=== PATIENT | female | born 1940 | race Hispanic/Latino ===

== ENCOUNTER 2018-11-07 07:35 | Day surgery (SDC) | payer OTHER ==
[2018-11-01 10:44] LABS: BASOPHILS % (AUTO) 0.8 % (0.0-5.0); EOSINOPHILS % (AUTO) 4.5 % (0.0-8.0); HEMATOCRIT 38.7 % (36-48); LYMPHOCYTES % (AUTO) 26.1 % (21.0-51.0); MEAN CORPUSCULAR HEMOGLOBIN 31.7 pg (27.0-33.0); MEAN CORPUSCULAR HGB CONC 34.2 g/dL (32.0-36.0); MEAN CORPUSCULAR VOLUME 92.8 fL (79-99); MONOCYTES % (AUTO) 7.9 % (3.0-13.0); NEUTROPHILS % (AUTO) 60.7 % (40.0-77.0); PLATELET COUNT (AUTO) 278 K/uL (130-400); RED BLOOD CELL COUNT(AUTO) 4.17 MIL/uL (4.00-5.50); RED CELL DISTRIBUTION WIDTH 13.9 % (11.0-15.5); WHITE BLOOD COUNT (AUTO) 7.1 K/uL (4.8-10.8)
[2018-11-01 11:03] LABS: POTASSIUM 4.4 mmol/L (3.5-5.1)
[2018-11-01 11:32] VITALS: BP 160/74
--- NOTE | 2018-11-06 14:30 | NUR ---
REPORTED EKG RESULTS TO DOCTOR HENDRIX, NO NEW ORDERS.
[~2018-11-07] VITALS: Ht 167.6 cm; Wt 91.4 kg
[2018-11-07] VITALS (19 sets, daily range): BP systolic 120–144; BP diastolic 53–77
[~2018-11-07 07:35] MED LIST: ALEN70TA10 PO; ASPI-555 PO; CEFAZOLIN SODIUM 1 GM VIAL IVP SCH; DORZ10DR20 OP; GLIP10TA9 PO; IBUP-2070 PO; LACTATED RINGERS 1000ML 1,000 ML IV SCH; LATA7.5D OP; LEVO50TA11 PO; LISI2.5T2 PO; METF-444 PO; SIMV40TA59 PO
--- NOTE | 2018-11-07 08:00 | NUR ---
POTENTIAL FOR INFECTION: NO SHAVING NEEDED TO RIGHT SHOULDER, WIPED RIGHT SHOULDER WITH PAULO: 2% CHLORHEXIDINE GLUCONATE CLOTH PATIENTS PRE-OP SKIN PREP PER LULA PALACIOS.
[2018-11-07] MEDS ORDERED: SODIUM CHLORIDE 0.9% 1000ML 1,000 ML IV ONE (08:39)
[2018-11-07] MEDS: CEFAZOLIN SODIUM 1 GM VIAL ONE ×2 (09:03→09:50)
[2018-11-07] MEDS ORDERED: ROPIVACAINE 0.5% 5MG/ML 30ML IJ ONE ×2 (09:32→09:36)
[2018-11-07] MEDS ORDERED: PROPOFOL 10 MG/ML 20ML VIAL IV ONE (09:32)
[2018-11-07] MEDS ORDERED: FENTANYL CITRATE PF 50 MCG/1 ML 2ML VIAL ONE (09:32)
[2018-11-07] MEDS ORDERED: ROCURONIUM 10MG/1ML SYR 10 MG/ML ML ONE (09:32)
[2018-11-07] MEDS ORDERED: LIDOCAINE PF 2% 5ML ABBOJECT ONE (09:32)
[2018-11-07] MEDS ORDERED: SUCCINYLCHOLINE 200MG/10ML SYR ONE (09:32)
[2018-11-07] MEDS ORDERED: GLYCOPYRROLATE 1 MG/5 ML SYRINGE ONE (10:57)
[2018-11-07] MEDS ORDERED: KETOROLAC TROMETHAMINE 30MG/ML ONE (10:57)
[2018-11-07] MEDS ORDERED: ONDANSETRON HCL 4 MG/2 ML VIAL ONE (10:57)
[2018-11-07] MEDS ORDERED: NEOSTIGMINE 5MG/5ML SYR IV ONE (10:57)
[2018-11-07] MEDS ORDERED: MORPHINE SULFATE 2 MG/ML 1ML SYG ONE (12:04)
--- NOTE | 2018-11-07 12:50 | NUR ---
new received new pt from [facility], s/p right shoulder arthroscopy. dressing to site dry and intact with arm sling in place. vs stable on arrival. pt awake and alert. plan of care discuss with patient/daughter
--- NOTE | 2018-11-07 13:20 | NUR ---
dc dc instructions given to pt daughter with rx, office close with .dr wolf unable to make f/u appointment, but daughter instructed to f/u in 1 week, instructed on new med regimen. to keep dressing dry and intact at all times. to wear arm sling to right shoulder. dressing to right shoulder dry and intact, pt able to wiggle fingers. pt received a nerve block.
--- NOTE | 2018-11-07 13:25 | NUR ---
dc pt dc home via w[facility] , no distress noted. denied any pain or discomforts. right shoulder dressing dry and intact with arm sling in place. patient accompanied by daughter.
== END 2018-11-07 13:25 | disposition home or self-care (01) ==
LOC: DAH 07:35
PROVIDERS: ATTEND Orthopaedic Surgery
DX: M75.111 Incomplete rotator cuff tear or rupture of right shoulder, not specified as traumatic (principal); M25.711 Osteophyte, right shoulder; E11.9 Type 2 diabetes mellitus without complications; I10 Essential (primary) hypertension; K21.9 Gastro-esophageal reflux disease without esophagitis; E78.00 Pure hypercholesterolemia, unspecified; Z98.51 Tubal ligation status; Z90.710 Acquired absence of both cervix and uterus; Z98.890 Other specified postprocedural states; Z79.899 Other long term (current) drug therapy; Z79.84 Long term (current) use of oral hypoglycemic drugs; Z83.3 Family history of diabetes mellitus; Z82.49 Family history of ischemic heart disease and other diseases of the circulatory system
CPT/HCPCS: 29826; 29827; 36415; 80048; 82948 ×2; 85025; 93005; A4215; A4248; A4452; A4649 ×5; C1713; J0330; J0690; J1885; J2001; J2405; J2704; J2710; J2795; J3010; J3490; J7030; J7120

== ENCOUNTER 2021-05-06 19:49 | Emergency (ER) | payer MEDICARE, OTHER ==
[~2021-05-06] VITALS: Ht 162.6 cm; Wt 95.7 kg
[~2021-05-06 19:49] MED LIST changes: -ALEN70TA10 PO; +ALEN70TA80 PO; -ASPI-555 PO; -CEFAZOLIN SODIUM 1 GM VIAL IVP SCH; -IBUP-2070 PO; -LACTATED RINGERS 1000ML 1,000 ML IV SCH; +LISI2.5T13 PO; -LISI2.5T2 PO
[2021-05-06] MEDS ORDERED: HYDROCODONE/ACETAMINOPHEN 5/325 MG TAB PO ONE (20:30)
[2021-05-06] MEDS ORDERED: NAPR-1180 PO (20:43)
[2021-05-06 20:46] VITALS: BP 160/79
== END 2021-05-06 20:49 | disposition home or self-care (01) ==
LOC: EDH 19:49
DX: S80.01XA Contusion of right knee, initial encounter (principal); M17.11 Unilateral primary osteoarthritis, right knee; E11.9 Type 2 diabetes mellitus without complications; E78.00 Pure hypercholesterolemia, unspecified; E66.9 Obesity, unspecified; Z90.49 Acquired absence of other specified parts of digestive tract; Z90.710 Acquired absence of both cervix and uterus; Z79.84 Long term (current) use of oral hypoglycemic drugs; Z79.899 Other long term (current) drug therapy; W01.0XXA Fall on same level from slipping, tripping and stumbling without subsequent striking against object, initial encounter; Y93.89 Activity, other specified; Y92.098 Other place in other non-institutional residence as the place of occurrence of the external cause; Y99.8 Other external cause status
CPT/HCPCS: 73562

== ENCOUNTER → 2023-05-14 | Outpatient (CLI) | payer MEDICARE ==
[~2023-05-14] MED LIST changes: +CEPH500C2 PO; +OSEL75CA17 PO
== END | disposition home or self-care (01) ==
LOC: RAH 11:11
PROVIDERS: ATTEND Family Medicine
DX: E04.2 Nontoxic multinodular goiter (principal)
CPT/HCPCS: 76536

== ENCOUNTER 2025-01-08 23:35 | Emergency (ER) | payer MEDICARE ==
[~2025-01-08] VITALS: Ht 167.6 cm; Wt 81.6 kg
[~2025-01-08 23:35] MED LIST changes: +GLIP10TA16 PO; -GLIP10TA9 PO
[2025-01-08 23:59] LABS: IMMATURE GRANULOCYTE ABSOLUTE 0.04 K/uL (0-1); NUCLEATED RED BLOOD CELLS 0.0 % (0.0-0.19); PLATELET COUNT (AUTO) 307 K/uL (130-400); RED BLOOD CELL COUNT(AUTO) 3.90 MIL/uL (4.00-5.50); RED CELL DISTRIBUTION WIDTH 13.1 % (11.0-15.5); WHITE BLOOD COUNT (AUTO) 13.2 K/uL (4.8-10.8)
[2025-01-09 00:07] LABS: CREATININE 1.1 mg/dL (0.5-1.0); GLOMERULAR FILTR. RATE CALC 50.0 mL/min (>90); GLUCOSE,RANDOM 105.0 mg/dL (70-105); SODIUM SERUM 139.0 mmol/L (136-145); UREA NITROGEN, BLOOD 16.0 mg/dL (7-18)
[2025-01-09 00:13] LABS: CREATINE KINASE, TOTAL 47.0 U/L (21-232); INR 0.99 (0.85-1.15)
--- NOTE | 2025-01-09 01:49 | HMCIMG ---
EXAM: CR Chest, 1 view CLINICAL HISTORY: Chest pain. COMPARISON: Chest radiograph dated 04/18/2023. FINDINGS: The lungs show no infiltrates or other acute findings. No pleural effusion or pneumothorax. The cardiomediastinal silhouette is within normal limits. No acute osseous abnormality. Mild dextrocurvature of the thoracic spine. IMPRESSION: No acute cardiopulmonary process is evident. Compared to the prior study, there is no significant interval change. /[place]
--- NOTE | 2025-01-09 02:20 | ERN ---
General Chief Complaint: Chest Pain Stated Complaint: CHEST PAIN Time Seen by MD: 23:38 Time Seen by Midlevel: 23:38 Source: patient History of Present Illness Initial Comments The patient is an 84-year-old female with a past medical history of type 2 diabetes, hyperlipidemia, and hypertension being brought in by EMS for multiple complaints. According to EMS the initial call came in for chest pain however on arrival with the patient was found to have a glucose in 40s. The patient was started on D5 and shortly after she had one episode of vomiting. On arrival she does report feeling improved and specifically denies any chest pain. She is on metformin and glipizide for diabetes. Allergies: Coded Allergies: No Known Drug Allergies (Verified Allergy, Unknown, 11/01/18) Home Meds Active Scripts Oseltamivir Phosphate (Oseltamivir Phosphate) 75 Mg Capsule, 75 MG PO BID, #6 CAP 0 Refills Prov:SONAL MARTINEZ MILK ROUTE DELIVERER 04/21/23 Cephalexin (Cephalexin) 500 Mg Capsule, 500 MG PO BID, #10 CAP 0 Refills Prov:SONAL MARTINEZ MILK ROUTE DELIVERER 04/21/23 Reported Medications Alendronate Sodium (Alendronate Sodium) 70 Mg Tablet, 70 MG PO WEEKLY, TAB 11/01/18 Simvastatin (ZOCOR) 40 Mg Tablet, 40 MG PO HS, TAB 11/01/18 Dorzolamide/Timolol/Pf (Timolol 0.5%-Dorzolamide 2%) 10 Ml Drops, 1 DROP OP BID, DROP 11/01/18 Levothyroxine Sodium (Levothyroxine Sodium) 50 Mcg Tablet, 50 MCG PO DAILY, TAB 11/01/18 Glipizide (Glipizide) 10 Mg Tablet, 10 MG PO BID, TAB 11/01/18 Metformin HCl (Metformin HCl) 500 Mg Tablet, 500 MG PO TID, TAB 11/01/18 Latanoprost/Pf (Latanoprost 0.005% Eye Drop) 7.5 Ml Drops, 1 DROP OP DAILY, DROP 11/01/18 Lisinopril (Lisinopril) 2.5 Mg Tablet, 2.5 MG PO DAILY, TAB 11/01/18 Past Medical History Past Medical History: Diabetes-Type II, High Cholesterol, Hypertension Medical History Other: Obesity Past Surgical History: None Social History Social History: Negative ROS Dictation CONSTITUTIONAL: Negative except for HPI HEAD/FACE: Negative except for HPI EENT: Negative except for HPI RESPIRATORY: Negative except for HPI GASTROINTESTINAL/ABDOMINAL: Negative except for HPI GENITOURINARY: Negative except for HPI MUSCULOSKELETAL: Negative except for HPI INTEGUMENTARY: Negative except for HPI NEUROLOGICAL/PSYCH: Negative except for HPI HEMATOLOGIC/LYMPHATIC: Negative except for HPI All Systems Negative, Except as noted above. 13 point review of systems assessed and all negative except for above. Physical Exam Physical Exam Dictation Vital Signs reviewed General Appearance: Alert, oriented x 3, no acute distress, well developed, nourished. Head and Face: non-traumatic. Eyes: PERRL, pink conjunctivas, eyelid no trauma, anterior chamber with arcus senilis. Ears: Pinnas intact and no signs of trauma or erythema ear canals clear and no discharge TM no erythema Nose: No discharge, no bleeding. Oropharynx: Mouth normal, tongue pink, pharynx clear,no erythema, tonsils no exudates, no abscesses noted, mucous membrane moist Neck: Supple, non-tender, no thyromegaly, no masses, no JVD, no bruits Breast:Deferred Chest:No tenderness, no crepitus, no paradoxical movement, no retractions Lungs:Clear, well-ventilated, symmetric, no rales, no wheezing, no rhonchi, no stridor, good breath sounds bilaterally Heart: Regular rate, regular rhythm, no murmur, no gallops Vascular: no peripheral edema, Abdomen: Soft, positive bowel sounds, nondistended, no guarding, nontender, no rebound, no masses no hepatomegaly, no splenomegaly, no Buchanan's sign, no hernias. Rectal: Deferred Genital: Deferred Neurological: Normal speech, motor function intact, sensory function intact Musculoskeletal: Neck nontender, full range of motion, back nontender, full range of motion, Extremities: nontender, full range of motion Skin: Color pink, dry, no turgor, no rash, no lacerations, no abrasions, no contusions. Lymphatic: Deferred Results Laboratory and Microbiology Lab and Micro Result Laboratory Tests Test 01/08/25 23:49 01/09/25 01:15 01/09/25 01:42 White Blood Count 13.2 K/uL (4.8-10.8) H Red Blood Count 3.90 MIL/uL (4.00-5.50) L Hemoglobin 12.4 g/dL (12.0-16.0) Hematocrit 37.0 % (36-48) Mean Corpuscular Volume 94.9 fL (79-99) Mean Corpuscular Hemoglobin 31.8 pg (27.0-33.0) Mean Corpuscular Hemoglobin Concent 33.5 g/dL (32.0-36.0) Red Cell Distribution Width 13.1 % (11.0-15.5) Platelet Count 307 K/uL (130-400) Mean Platelet Volume 10.1 fL (7.5-10.5) Immature Granulocyte % (Auto) 0.3 % (0-1) Neutrophils (%) (Auto) 80.8 % (40.0-77.0) H Lymphocytes (%) (Auto) 11.0 % (21.0-51.0) L Monocytes (%) (Auto) 6.3 % (3.0-13.0) Eosinophils (%) (Auto) 1.2 % (0.0-8.0) Basophils (%) (Auto) 0.4 % (0.0-5.0) Neutrophils # (Auto) 10.7 K/uL (1.8-7.7) H Lymphocytes # (Auto) 1.5 K/uL (1.0-4.8) Monocytes # (Auto) 0.8 K/uL (0.1-1.0) Eosinophils # (Auto) 0.16 K/uL (0.00-0.70) Basophils # (Auto) 0.05 K/uL (0.00-0.20) Absolute Immature Granulocyte (auto 0.04 K/uL (0-1) Nucleated Red Blood Cells 0.0 % (0.0-0.19) Prothrombin Time 10.5 SEC (9.6-11.6) Prothromb Time International Ratio 0.99 (0.85-1.15) Activated Partial Thromboplast Time 27.9 SEC (26.3-35.5) Sodium Level 139 mmol/L (136-145) Potassium Level 4.2 mmol/L (3.5-5.1) Chloride Level 100 mmol/L (101-111) L Carbon Dioxide Level 27 mmol/L (21-32) Blood Urea Nitrogen 16 mg/dL (7-18) Creatinine 1.1 mg/dL (0.5-1.0) H Glomerular Filtration Rate Calc 50 mL/min (>90) Random Glucose 105 mg/dL (70-105) Total Calcium 10.5 mg/dL (8.5-10.1) H Magnesium Level 1.50 mg/dL (1.80-2.40) L Total Creatine Kinase 47 U/L (21-232) # Troponin I High Sensitivity 5 ng/L (4-50) 7 ng/L (4-50) B-Type Natriuretic Peptide 18 pg/mL (0-100) Whole Blood Glucose 116 MG/DL (70-110) H Labs Reviewed?: Yes MDM MDM: The patient is an 84-year-old female with a past medical history of type 2 diabetes, hyperlipidemia, and hypertension being brought in by EMS for multiple complaints. According to EMS the initial call came in for chest pain however on arrival with the patient was found to have a glucose in 40s. The patient was started on D5 and shortly after she had one episode of vomiting. On arrival she does report feeling improved and specifically denies any chest pain. She is on metformin and glipizide for diabetes. On physical examination the patient is in no acute distress. Vital signs areStable. CBC shows slight leukocytosis with a white blood cell count of 13.2 most likely stress reaction from her recent episode of nausea and vomiting. Chemistries are stable. Random glucose is 105. Patient was observed in the ER for over2 hours and has remained stable repeat fingerstick is 116. Patient states she has not eaten she was provided a Jell-O and apple juice. No sandwiches were available in the emergency department. Patient was counseled on diet. She will be holding off on glipizide until she can see her provider and possibly adjust her medication. Differential diagnosis: Hypoglycemia, medication reaction, acute coronary syndrome There are no social concerns with this patient. Prescription drug management Prescriptions will include: An Medical management and examination interpretation discussions were had by me with other qualified healthcare professionals as indicated for the patient's care. ED Course Orders Procedure Category Date Status Time 12 Lead Ekg Tracing- EKG 01/08/25 Logged Technical 23:38 Cbc With Differential LAB 01/08/25 Complete 23:38 Basic Metabolic Panel LAB 01/08/25 Complete 23:38 B-Type Natriuretic LAB 01/08/25 Complete Peptide 23:38 Creatine Kinase, Total LAB 01/08/25 Complete 23:38 Magnesium LAB 01/08/25 Complete 23:38 Troponin I High LAB 01/08/25 Complete Sensitivity 23:38 Pt And Ptt LAB 01/08/25 Complete 23:38 Chest 1vw RAD 01/08/25 Resulted 23:38 Troponin I High LAB 01/09/25 Complete Sensitivity 01:08 Bedside Glucose CPOE 01/09/25 Transmitted Fingerstick 01:08 Vital Signs Date Time Temp Pulse Resp B/P (MAP) Pulse Ox O2 Delivery O2 Flow Rate FiO2 01/09/25 00:00 98.2 85 18 149/72 96 Room Air* 0 21 01/08/25 23:36 98.1 95 16 128/78 98 Room Air 0 HEART Score Response (Comments) Value History: Low suspicion (0) 0 EKG: Normal 0 Age: > 65yrs (+2) 2 Risk Factors: 1-2 risk factors (+1) 1 Initial Troponin: Normal limit (0) 0 HEART Score Risk: Low Risk for MACE (1-3) Total 3 DX & DISP Disposition: Discharge Departure Impression: Primary Impression: Hypoglycemia Additional Impression: Non-cardiac chest pain Condition: Stable Referrals: KRZYSZTOF PERLA DO (PCP) Time of Disposition: 02:19 I have reviewed the case, and I agree with, Diagnosis and Plan I performed the substantive portion of the visit. I have reviewed and personally made and approve the management plan that is documented in the note by myself or the FREDERIC. I acknowledge for responsibility for the patient's management plan. JOSE RAFAEL CASAS PAC Jan 09, 2025 02:20
--- NOTE | 2025-01-09 02:51 | EKG ---
[facility] Test Date: 2025-01-08 Test Time: 23:56:08 Pat Name: EVELYN MALONEY Department: ED Room: Gender: F Welfare Adviser: [id number] : 1940 Requested By: JOSE RAFAEL CASAS Order Number: [id number] Reading MD: Ancelmo Botello Measurements Intervals [place] Rate: 91 P: 33 KS: 160 QRS: -42 QRSD: 146 T: 7 QT: 395 QTc: 488 Interpretive Statements Sinus rhythm RBBB and LAFB Compared to ECG 04/18/2023 15:31:15 Atrial-paced complex(es) or rhythm no longer present Intraventricular conduction delay no longer present ST (T wave) deviation no longer present Electronically Signed On 01-11-2025 16:04:02 CDT by Ancelmo Botello Please click the below link to view image of tracing.
[2025-01-09 03:14] VITALS: BP 130/74; PULSE 87; RESP 18; TEMP 98.2; O2SAT 96
== END 2025-01-09 03:31 | disposition home or self-care (01) ==
LOC: EDH 23:35
DX: E11.649 Type 2 diabetes mellitus with hypoglycemia without coma (principal); R07.89 Other chest pain; R11.10 Vomiting, unspecified; E78.00 Pure hypercholesterolemia, unspecified; I10 Essential (primary) hypertension; E66.9 Obesity, unspecified; Z68.29 Body mass index [BMI] 29.0-29.9, adult; Z79.84 Long term (current) use of oral hypoglycemic drugs; Z79.899 Other long term (current) drug therapy; Z79.890 Hormone replacement therapy
CPT/HCPCS: 36415; 71045; 80048; 82550; 82948; 83735; 83880; 84484; 85025; 85610; 85730; 93005; 99285

== ENCOUNTER 2025-02-22 12:53 | Observation (INO) | payer MEDICARE ==
[~2025-02-22] VITALS: Ht 167.6 cm; Wt 81.8 kg
--- NOTE | 2025-02-22 13:09 | EKG ---
[facility] Test Date: 2025-02-22 Test Time: 12:51:50 Pat Name: EVELYN MALONEY Department: ED Room: Gender: F Sales And Marketing Coordinator: [id number] : 1940 Requested By: KELBY GOMEZ Order Number: [id number] Reading MD: Alyssa Bland Measurements Intervals [place] Rate: 97 P: 17 ID: 150 QRS: -70 QRSD: 134 T: 1 QT: 373 QTc: 474 Interpretive Statements Sinus rhythm Right bundle branch block Compared to ECG 01/08/2025 23:56:08 Left anterior fascicular block no longer present Electronically Signed On 02-22-2025 13:45:52 APPRENTICE/LINEMAN by Alyssa Bland Please click the below link to view image of tracing.
[2025-02-22 13:20] LABS: IMMATURE GRANULOCYTE ABSOLUTE 0.01 K/uL (0-1); NUCLEATED RED BLOOD CELLS 0.0 % (0.0-0.19); PLATELET COUNT (AUTO) 282 K/uL (130-400); RED BLOOD CELL COUNT(AUTO) 4.09 MIL/uL (4.00-5.50); RED CELL DISTRIBUTION WIDTH 12.8 % (11.0-15.5); WHITE BLOOD COUNT (AUTO) 6.7 K/uL (4.8-10.8)
[2025-02-22 13:28] LABS: CREATININE 1.0 mg/dL (0.5-1.0); GLOMERULAR FILTR. RATE CALC 56.0 mL/min (>90); GLUCOSE,RANDOM 206.0 mg/dL (70-105); SODIUM SERUM 133.0 mmol/L (136-145); UREA NITROGEN, BLOOD 12.0 mg/dL (7-18)
[2025-02-22 13:33] LABS: CREATINE KINASE, TOTAL 26.0 U/L (21-232)
--- NOTE | 2025-02-22 13:55 | ERN ---
General Chief Complaint: Chest Pain Stated Complaint: CHEST PAIN Time Seen by MD: 12:58 Source: patient History of Present Illness Initial Comments PATIENT IS A AN 84-YEAR-OLD FEMALE COMING IN COMPLAINING OF CHEST PAIN. PER EMS PATIENT HAS BEEN IN HIS WITH SOON OUT OF 10 CHEST PAIN RECEIVED NITROGLYCERIN STATES HER PAIN IMPROVED. Allergies: Coded Allergies: No Known Drug Allergies (Verified Allergy, Unknown, 11/01/18) Home Meds Reported Medications Citalopram Hydrobromide (Citalopram HBr) 10 Mg Tablet, 10 MG PO DAILY, TAB 02/22/25 Gabapentin (Gabapentin) 100 Mg Capsule, 300 MG PO BID, CAP 02/22/25 Alendronate Sodium (Alendronate Sodium) 70 Mg Tablet, 70 MG PO WEEKLY, TAB 11/01/18 Simvastatin (ZOCOR) 40 Mg Tablet, 40 MG PO HS, TAB 11/01/18 Dorzolamide/Timolol/Pf (Timolol 0.5%-Dorzolamide 2%) 10 Ml Drops, 1 DROP OP BID, DROP 11/01/18 Levothyroxine Sodium (Levothyroxine Sodium) 50 Mcg Tablet, 50 MCG PO DAILY, TAB 11/01/18 Glipizide (Glipizide) 10 Mg Tablet, 10 MG PO BID, TAB 11/01/18 Metformin HCl (Metformin HCl) 500 Mg Tablet, 500 MG PO TID, TAB 11/01/18 Latanoprost/Pf (Latanoprost 0.005% Eye Drop) 7.5 Ml Drops, 1 DROP OP DAILY, DROP 11/01/18 Lisinopril (Lisinopril) 2.5 Mg Tablet, 2.5 MG PO DAILY, TAB 11/01/18 Discontinued Scripts Oseltamivir Phosphate (Oseltamivir Phosphate) 75 Mg Capsule, 75 MG PO BID, #6 CAP 0 Refills Prov:SONAL MARTINEZ MANUFACTURING SUPERVISOR 04/21/23 Cephalexin (Cephalexin) 500 Mg Capsule, 500 MG PO BID, #10 CAP 0 Refills Prov:SONAL MARTINEZ MANUFACTURING SUPERVISOR 04/21/23 Past Medical History Past Medical History: Anxiety, Depression, Diabetes-Type II, High Cholesterol, Hypertension, Hypothyroid Medical History Other: Obesity Past Surgical History: None Social History Social History: Negative ROS Dictation CONSTITUTIONAL: NO CHILLS, NO FEVER, NO WEAKNESS, NO DIAPHORESIS, NO MALAISE. HEAD/FACE: NO SIGNS OF TRAUMA. EENT: NO EYE PAIN, NO BLURRED VISION, NO TEARING, NO DOUBLE VISION, NO EAR PAIN, NO EAR DISCHARGE, NO NOSE PAIN, NO NASAL CONGESTION, NO THROAT PAIN, NO THROAT SWELLING, NO MOUTH PAIN. RESPIRATORY: NO COUGH, NO ORTHOPNEA, NO SOB, NO STRIDOR, NO WHEEZING. CARDIOVASCULAR: CHEST PAIN, NO EDEMA, NO PALPITATIONS, NO SYNCOPE. GASTROINTESTINAL/ABDOMINAL: NO ABDOMINAL PAIN, NO CONSTIPATION, NO DIARRHEA, NO NAUSEA, NO VOMITING. GENITOURINARY: NO ABNORMAL DISCHARGE, NO DYSURIA, NO FREQUENT URINATION, NO HEMATURIA. NO COMPLAINTS OF PAIN IN THE GENITALS. MUSCULOSKELETAL: NO BACK PAIN, NO GOUT, NO JOINT PAIN, NO JOINT SWELLING, NO MUSCLE PAIN, NO MUSCLE STIFFNESS, NO NECK PAIN. INTEGUMENTARY: NO CHANGE IN COLOR, NO CHANGE IN HAIR/NAILS, NO DRYNESS, NO LESION, NO LUMPS, NO RASH. NEUROLOGICAL/PSYCH: NO ANXIETY, NOT DEPRESSED, NO EMOTIONAL PROBLEM, NO HEADACHE, NO NUMBNESS, NO PRE-EXISTING DEFICIT, NO HISTORY OF SEIZURES, NO TREMORS, NO WEAKNESS. HEMATOLOGIC/LYMPHATIC: NOT ANEMIC, NO HISTORY OF BLOOD CLOTS, NO APPARENT BLEEDING, NO BRUISING, GLANDS NOT SWOLLEN. ALL SYSTEMS NEGATIVE, EXCEPT NOTED. Physical Exam Physical Exam Dictation VITAL SIGNS: REVIEWED. GENERAL APPEARANCE: ALERT, ORIENTED X3, NO ACUTE DISTRESS, OBESE. HEAD AND FACE: NON-TRAUMATIC. EYES: PERRL, PINK CONJUNCTIVAS, EYELID NO TRAUMA, ANTERIOR CHAMBER CLEAR. EARS: PINNAS INTACT AND NO SIGNS OF TRAUMA OR ERYTHEMA. EAR CANALS CLEAR AND NO DISCHARGE. TMS NO ERYTHEMA. NOSE: NO DISCHARGE, NO BLEEDING. OROPHARYNX: MOUTH NORMAL, TEETH NO CARIES, TONGUE PINK. PHARYNX CLEAR, NO ERYTHEMA. TONSILS NO EXUDATES, NO ABSCESSES NOTED. MUCOUS MEMBRANE MOIST. NECK: SUPPLE, NON-TENDER, NO THYROMEGALY, NO MASSES, NO JVD, NO BRUITS. BREAST: DEFERRED. CHEST: NO TENDERNESS, NO CREPITUS, NO PARADOXICAL MOVEMENT, NO RETRACTIONS. LUNGS: CLEAR, WELL-VENTILATED, SYMMETRIC, NO RALES, NO WHEEZING, NO RHONCHI, NO STRIDOR, GOOD BREATH SOUNDS BILATERALLY. HEART: REGULAR RATE, REGULAR RHYTHM, NO MURMUR, NO GALLOPS. VASCULAR: NO PERIPHERAL EDEMA. ABDOMEN: SOFT, POSITIVE BOWEL SOUNDS, NONDISTENDED, NO GUARDING, NONTENDER, NO REBOUND, NO MASSES NO HEPATOMEGALY, NO SPLENOMEGALY, NO ECHAVARRIA'S SIGN, NO HERNIAS. RECTAL: DEFERRED. GENITAL: DEFERRED. NEUROLOGICAL: NORMAL SPEECH, GROSS MOTOR FUNCTION INTACT, GROSS SENSORY FUN CTION INTACT. MUSCULOSKELETAL: NECK NONTENDER, FULL RANGE OF MOTION, BACK NONTENDER, FULL RANGE OF MOTION. EXTREMITIES: NONTENDER, FULL RANGE OF MOTION. SKIN: COLOR PINK, DRY, NO TURGOR, NO RASH, NO LACERATIONS, NO ABRASIONS, NO CONTUSIONS. LYMPHATICS: DEFERRED. Results Laboratory and Microbiology Lab and Micro Result Laboratory Tests Test 02/22/25 13:13 02/22/25 13:17 White Blood Count 6.7 K/uL (4.8-10.8) Red Blood Count 4.09 MIL/uL (4.00-5.50) Hemoglobin 12.8 g/dL (12.0-16.0) Hematocrit 38.9 % (36-48) Mean Corpuscular Volume 95.1 fL (79-99) Mean Corpuscular Hemoglobin 31.3 pg (27.0-33.0) Mean Corpuscular Hemoglobin Concent 32.9 g/dL (32.0-36.0) Red Cell Distribution Width 12.8 % (11.0-15.5) Platelet Count 282 K/uL (130-400) Mean Platelet Volume 10.0 fL (7.5-10.5) Immature Granulocyte % (Auto) 0.2 % (0-1) Neutrophils (%) (Auto) 59.2 % (40.0-77.0) Lymphocytes (%) (Auto) 28.7 % (21.0-51.0) Monocytes (%) (Auto) 7.8 % (3.0-13.0) Eosinophils (%) (Auto) 3.3 % (0.0-8.0) Basophils (%) (Auto) 0.8 % (0.0-5.0) Neutrophils # (Auto) 4.0 K/uL (1.8-7.7) Lymphocytes # (Auto) 1.9 K/uL (1.0-4.8) Monocytes # (Auto) 0.5 K/uL (0.1-1.0) Eosinophils # (Auto) 0.22 K/uL (0.00-0.70) Basophils # (Auto) 0.05 K/uL (0.00-0.20) Absolute Immature Granulocyte (auto 0.01 K/uL (0-1) Nucleated Red Blood Cells 0.0 % (0.0-0.19) Prothrombin Time 10.5 SEC (9.6-11.6) Prothromb Time International Ratio 0.99 (0.85-1.15) Activated Partial Thromboplast Time 29.2 SEC (26.3-35.5) Sodium Level 133 mmol/L (136-145) L Potassium Level 3.9 mmol/L (3.5-5.1) Chloride Level 99 mmol/L (101-111) L Carbon Dioxide Level 25 mmol/L (21-32) Blood Urea Nitrogen 12 mg/dL (7-18) Creatinine 1.0 mg/dL (0.5-1.0) Glomerular Filtration Rate Calc 56 mL/min (>90) Random Glucose 206 mg/dL (70-105) H Total Calcium 10.4 mg/dL (8.5-10.1) H Total Creatine Kinase 26 U/L (21-232) # Troponin I High Sensitivity 9 ng/L (4-50) 12 ng/L (4-50) Triglycerides Level 126 mg/dL (30-200) Cholesterol Level 195 mg/dL (<200) LDL Cholesterol 109 mg/dL (0-99) H HDL Cholesterol 56 mg/dL (35-85) Thyroid Stimulating Hormone (TSH) 1.92 uIU/mL (0.36-3.74) # Labs Reviewed?: Yes MDM MDM: DIFFERENTIAL DIAGNOSIS: CHEST PAIN, RATIONALE: TESTS CONSIDERED AND ORDERED SECONDARY TO SHARED DECISION MAKING INCLUDE: LABS, ECG AND RADIOLOGY PREVIOUS OUTSIDE RECORDS REVIEWED: OLD ER VISITS. RISK OF COMPLICATION AND/OR MORBIDITY OR MORTALITY OF PATIENT MANAGEMENT: NONE MEDICATIONS-PER MEDICATION RECONCILIATION NEED FOR HOSPITALIZATION: PATIENT DOES MEET CRITERIA FOR HOSPITALIZATION. NEED FOR EMERGENCY MAJOR/MINOR SURGERY: NO THERE ARE NO SOCIAL CONCERNS WITH THIS PATIENT. PRESCRIPTION DRUG MANAGEMENT PRESCRIPTIONS WILL INCLUDE SYMPTOMATIC CARE PATIENT'S PRIOR EXTERNAL MEDICAL RECORDS FROM OTHER ER VISITS WERE REVIEWED BY ME INDICATED. PRIOR TESTING AND RESULTS FROM PREVIOUS VISITS WERE REVIEWED. PRIOR TESTS WERE TAKEN INTO ACCOUNT WITH MEDICAL DECISION MAKING AND RESOURCE UTILIZATION, INDEPENDENT HISTORIAN/HISTORIANS WERE USED TO OBTAIN COMPLETE MEDICAL HISTORY. I INDEPENDENTLY INTERPRETED THE TEST THAT WERE PERFORMED, RESULTS WERE REVIEWED BY ME AND CONSIDERED FINDINGS ON RADIOLOGY IF ORDERED. MEDICAL MANAGEMENT AND EXAMINATION INTERPRETATION DISCUSSIONS WERE HAD BY ME WITH OTHER QUALIFIED HEALTHCARE PROFESSIONALS INDICATED FOR THE PATIENT'S CARE. PATIENT WILL BE ADMITTED UNDER THE CARE OF HOSPITALIST GROUP. ED Course Orders Procedure Category Date Status Time 12 Lead Ekg Tracing- EKG 02/22/25 Resulted Technical 12:57 Cbc With Differential LAB 02/22/25 Complete 13:00 Chest 1vw RAD 02/22/25 Resulted 13:00 Creatine Kinase, Total LAB 02/22/25 Complete 13:00 Troponin I High LAB 02/22/25 Complete Sensitivity 13:00 Basic Metabolic Panel LAB 02/22/25 Complete 13:00 Troponin I High LAB 02/22/25 Complete Sensitivity 13:41 Vital Signs Date Time Temp Pulse Resp B/P (MAP) Pulse Ox O2 Delivery O2 Flow Rate FiO2 02/22/25 14:08 98.2 85 12 146/71 98 Room Air* 0 21 02/22/25 13:26 98.2 86 12 141/64 97 Room Air* 0 21 02/22/25 12:58 98.2 100 20 101/43 98 Room Air DX & DISP Disposition: Inpatient Decision to Admit Time: 13:55 Departure Impression: Primary Impression: Chest pain Condition: Stable Referrals: KRZYSZTOF PERLA DO (PCP) KELBY GOMEZ MD Feb 22, 2025 13:55
--- NOTE | 2025-02-22 14:10 | HMCIMG ---
EXAM: CR Chest, 1 View. CLINICAL HISTORY: cp COMPARISON: None provided. FINDINGS: LUNGS: The lungs show no infiltrate or other acute finding. PLEURAL SPACES: No evidence of pleural effusion or pneumothorax. MEDIASTINUM: Cardiac size and mediastinal contours within normal limits. BONES: No aggressive appearing osseous lesion seen. IMPRESSION: No acute cardiopulmonary pathology is evident. /[place]
[2025-02-22] MEDS ORDERED: NITROGLYCERIN 0.4 MG SL TAB SL PRN (14:30)
[2025-02-22] MEDS ORDERED: DEXTROSE 50%-WATER 50 ML DISP.SYRIN IV PRN (14:30)
[2025-02-22] MEDS ORDERED: GLUCAGON 1MG KIT 1 MG ML IM PRN (14:30)
[2025-02-22 14:39] LABS: INR 0.99 (0.85-1.15)
[2025-02-22 14:55] LABS: LDL DIRECT 109.0 mg/dL (0-99)
--- NOTE | 2025-02-22 14:57 | HMCIMG ---
EXAM: CT Head Without IV contrast. CLINICAL HISTORY: hx of fall w/ possible syncope in September,, neck pain since then TECHNIQUE: Axial computed tomography images of the head/brain without intravenous contrast. COMPARISON: None provided. FINDINGS: BRAIN: No evidence of acute hemorrhage. No mass lesion. No CT evidence for acute territorial infarct. No midline shift or extra-axial collections. VENTRICLES: No hydrocephalus. ORBITS: The orbits are unremarkable. SINUSES AND MASTOIDS: The paranasal sinuses and mastoid air cells are clear. BONES: No fracture. SOFT TISSUES: Unremarkable. IMPRESSION: No acute intracranial abnormality. /[place]
[2025-02-22] MEDS: 0.9%NACL 1000ML 1,000 ML IV SCH (15:02)
--- NOTE | 2025-02-22 15:04 | HP ---
[facility] HISTORY [facility] PHYSICAL Date of Service: Feb 22, 2025 Time of Service: 14:54 HISTORY OF PRESENT ILLNESS: Date of service: 02/22/2025, patient was seen in ER room 13 This 84-year-old female with underlying history of type 2 diabetes mellitus, hypertension, hyperlipidemia, hypothyroidism, presented to the ER for further evaluation of chest pain. Pain started earlier this morning and lasted for 30 minutes. Pain was moderate in intensity where she rated it as 6/10 with associated radiation to the right shoulder. Patient denies any previous history of [place]. Denies being seen by a dealer compliance representative as outpatient. Patient states that her chest pain significantly improved after receiving a dose of nitroglycerin from EMS. Chest pain has mostly resolved since then. Patient denies any fevers, chills, shortness of breath. Denies any long travel. Denies any pleuritic chest pain or lower extremity edema. Patient reports that she does not ambulate much due to issues with dizziness previously. She reports having had a possible syncopal fall in September of this year while she was ambulating. She reports having hit her head and since then, she would get up intermittent episodes of neck pain as well. Reports that her ambulation is limited due to issues with recurrent hypoglycemic events previo usly. Her PCP discontinued glipizide she thinks was contributing towards the hypoglycemia. She uses a walker to ambulate. Patient reports having history of long-term diabetes. She is currently maintained on outpatient treatment with metformin. She reports having issues with snoring previously but denies having had a sleep study to assess for sleep apnea. On presentation to the hospital, patient was noted to be afebrile with T-max of 98.2 F, heart rate of 100, blood pressure of 101/43. Patient was saturating 98% on room air. CBC on presentation was unremarkable. BMP showed sodium of 133, potassium 3.9, chloride of 99, BUN of 12, creatinine 1.0, blood glucose of 206, of 10.4, CK of 26, initial high sensitivity cardiac troponin of nine. Patient will be Placed under observation under hospitalist service. Due to underlying age and improvement of chest pain with nitroglycerin, she will undergo further workup to rule out active ACS. Due to underlying risk factors, consultation with Cardiology will be requested for further assessment of risk stratification for coronary artery disease. We will see how patient progresses in the next 24-48 hours. REVIEW OF SYSTEMS CONSTITUTIONAL: Denies fevers, chills, or night sweats. No unintentional weight loss reported. NEUROLOGICAL: Denies headache, amaurosis fugax, motor weakness, sensory deficit, vertigo/spinning sensation, gait abnormalities, or tremors. ENT: No hearing loss, otalgia, otorrhea, rhinitis, rhinorrhea, hoarseness, or sore throat. CARDIOVASCULAR: right sided chest pain today with associated radiation to the right shoulder PULMONARY: Denies any shortness of breath, cough, phlegm/sputum, hemoptysis, pleuritic chest pain. SLEEP: Denies morning headaches, daytime somnolence or napping. Denies difficulty falling asleep, staying asleep, waking from sleep. Denies knowledge of snoring. GASTROINTESTINAL: Denies any type of dysphagia to either liquids or solids. Denies nausea, vomiting, pyrosis, early satiety, abdominal pain, diarrhea, constipation, or changes in stool consistency or caliber. Denies coffee-ground emesis, hematemesis, hematochezia, or melanotic stools. GENITOURINARY: Denies frequency, urgency, nocturia, hematuria or incontinence (Storage/Irritative symptoms.) Low urinary stream, straining to void, urinary intermittency or hesitancy, splitting of the voiding stream, terminal dribbling. ENDOCRINOLOGIC: reports having issues with hypoglycemia previously HEMATOLOGIC: Denies thrombophilia/previous clots, or coagulopathy/bleeding disorders. ONCOLOGIC: Denies personal history of malignancy. DERMATOLOGIC: Denies rashes or pruritus. PSYCHIATRIC: Denies any suicidal or homicidal ideation. Denies hallucinations. PAST MEDICAL HISTORY: Hypertension, hyperlipidemia, type 2 diabetes mellitus, history of diabetic neuropathy, hypothyroidism PAST SURGICAL HISTORY: Prior history of hysterectomy, history of rotator cuff surgery in 2019 PAST SOCIAL HISTORY: resides with family at home, uses a walker to ambulate, needs assistance with IADLs, independent with ADLs FAMILY HISTORY: Denies pertinent family history Allergies: No known drug allergies Home medications: Patient reports being on metformin for management of type 2 diabetes mellitus, family will be bringing list of home medications to be reconciled and updated Coded Allergies: No Known Drug Allergies (Verified Allergy, Unknown, 11/01/18) PHYSICAL EXAM GENERAL APPEARANCE: The patient is awake, alert, and oriented, in no acute cardiopulmonary distress. NEUROLOGICAL: Cranial nerves II-XII grossly intact. Motor is 5/5 in bilateral upper and lower extremities proximal to distal. No sensory deficits. HEENT: Face is symmetric. Pupils are equal and reactive. Extraocular movements are intact. NECK: Supple. No JVD. No thyromegaly. No submental, submandibular, pre- /postauricular, occipital or supraclavicular lymphadenopathy. CHEST: Normal chest expansion. No Telemetry. LUNGS: Absence of any rales, rhonchi or any wheezing. CARDIOVASCULAR: Regular. S1 and S2 normal. No appreciable rubs, murmurs or gallops. ABDOMEN: Soft, nontender, and nondistended. There is no rebound, voluntary guarding, or rigidity. : Deferred. No Becerra. EXTREMITIES: Non-edematous and not cyanotic. No clubbing. Good capillary refill. SKIN: No skin breakdown. Vital Sign (Last 24 Hours) 02/22/25 14:08 Temp 98.2 Pulse 85 Resp 12 B/P (MAP) 146/71 Pulse Ox 98 O2 Delivery Room Air* O2 Flow Rate 0 FiO2 21 LABS: Laboratory: Test 02/22/25 13:17 02/22/25 13:13 Range/Units Troponin I High Sensitivity 12 4-50 ng/L White Blood Count 6.7 4.8-10.8 K/uL Red Blood Count 4.09 4.00-5.50 MIL/uL Hemoglobin 12.8 12.0-16.0 g/dL Hematocrit 38.9 36-48 % Mean Corpuscular Volume 95.1 79-99 fL Mean Corpuscular Hemoglobin 31.3 27.0-33.0 pg Mean Corpuscular Hemoglobin Concent 32.9 32.0-36.0 g/dL Red Cell Distribution Width 12.8 11.0-15.5 % Platelet Count 282 130-400 K/uL Mean Platelet Volume 10.0 7.5-10.5 fL Immature Granulocyte % (Auto) 0.2 0-1 % Neutrophils (%) (Auto) 59.2 40.0-77.0 % Lymphocytes (%) (Auto) 28.7 21.0-51.0 % Monocytes (%) (Auto) 7.8 3.0-13.0 % Eosinophils (%) (Auto) 3.3 0.0-8.0 % Basophils (%) (Auto) 0.8 0.0-5.0 % Neutrophils # (Auto) 4.0 1.8-7.7 K/uL Lymphocytes # (Auto) 1.9 1.0-4.8 K/uL Monocytes # (Auto) 0.5 0.1-1.0 K/uL Eosinophils # (Auto) 0.22 0.00-0.70 K/uL Basophils # (Auto) 0.05 0.00-0.20 K/uL Absolute Immature Granulocyte (auto 0.01 0-1 K/uL Nucleated Red Blood Cells 0.0 0.0-0.19 % Prothrombin Time 10.5 9.6-11.6 SEC Prothromb Time International Ratio 0.99 0.85-1.15 Activated Partial Thromboplast Time 29.2 26.3-35.5 SEC Sodium Level 133 L 136-145 mmol/L Potassium Level 3.9 3.5-5.1 mmol/L Chloride Level 99 L 101-111 mmol/L Carbon Dioxide Level 25 21-32 mmol/L Blood Urea Nitrogen 12 7-18 mg/dL Creatinine 1.0 0.5-1.0 mg/dL Glomerular Filtration Rate Calc 56 >90 mL/min Random Glucose 206 H 70-105 mg/dL Total Calcium 10.4 H 8.5-10.1 mg/dL Total Creatine Kinase 26 # 21-232 U/L Current Medications Medications (Trade) Dose Ordered Sig/Hyacinth Route PRN Reason Start Time Stop Time Status Last Admin Dose Admin Acetaminophen (TYLenol 325MG TAB) 650 mg Q6H PRN PO MILD PAIN (1-3) 02/22/25 14:30 03/24/25 14:29 Aspirin (Aspirin 81mg Chew Tab) 81 mg DAILY PO 02/23/25 09:00 03/25/25 08:59 Dextrose (D50w) 50 ml AD PRN IV HYPOGLYCEMIA PROTOCOL 02/22/25 14:30 03/24/25 14:29 Enoxaparin Sodium (Lovenox) 40 mg DAILY SQ 02/23/25 09:00 03/25/25 08:59 Glucagon (Glucagon 1mg Kit) 1 mg AD PRN IM HYPOGLYCEMIA PROTOCOL 02/22/25 14:30 03/24/25 14:29 Hydralazine HCl (APRESOLine 20MG INJ) 5 mg Q6H PRN IV ADMINISTER FOR SBP > 160 02/22/25 14:30 03/24/25 14:29 Insulin Human Regular (humuLIN R 100 UNIT/ML 3ML) INSULIN SLIDING SCAL... ACHS SQ 02/22/25 16:30 03/24/25 16:29 Nitroglycerin (Nitrostat) 0.4 mg AD PRN SL CHEST PAIN 02/22/25 14:30 03/24/25 14:29 Ondansetron HCl (zoFRAN 4MG INJ) 4 mg Q6H PRN IVP NAUSEA/VOMITING 02/22/25 14:30 03/24/25 14:29 Pantoprazole Sodium (PROTonix 40MG TAB) 40 mg Q24H PO 02/22/25 14:30 03/24/25 14:29 Sodium Chloride 1,000 ml @ 50 mls/hr Q20H IV 02/22/25 14:30 03/24/25 14:29 DIAGNOSTICS / RADIOLOGY: SERVICE 1300 REASON: cp ORDERING PHYSICIAN: KELBY GOMEZ MD PROCEDURE: CXR1VW - CHEST 1VW EXAM: CR Chest, 1 View. CLINICAL HISTORY: cp COMPARISON: None provided. FINDINGS: LUNGS: The lungs show no infiltrate or other acute finding. PLEURAL SPACES: No evidence of pleural effusion or pneumothorax. MEDIASTINUM: Cardiac size and mediastinal contours within normal limits. BONES: No aggressive appearing osseous lesion seen. IMPRESSION: No acute cardiopulmonary pathology is evident. /[place] DICTATED BY: MIRYAM TOMAS Jr., MD DATE: 02/22/251508 ELECTRONICALLY SIGNED BY: MIRYAM TOMAS Jr., MD DATE: 02/22/251508 ASSESSMENT: Chest pain with atypical features, POA Underlying history of type 2 diabetes mellitus, POA Hypertension, POA Hyperlipidemia, POA Suspected syncope in September,, POA EKG with right bundle branch block, POA Untreated sleep apnea, POA Hypothyroidism, POA Hypercalcemia, mild, POA PLAN: Patient will be placed under observation under hospitalist service Patient will be placed on telemetry monitoring Cardiac panel will be trended to rule out active ACS 2D echocardiogram will be obtained Due to underlying age, risk factors including long-term history of type 2 diabetes mellitus, hypertension, hyperlipidemia, hypothyroidism, we will have Cardiology evaluate patient for further risk stratification With regards to mild hypercalcemia, we will check a PTH, free ionized calcium and vitamin-D level with a.m. labs tomorrow We will try to obtain patient's home medication is which will be updated once available We will start patient on aspirin 81 mg daily Patient to continue with statin therapy for management of hyperlipidemia Discussed with patient to have her PCP refer her for sleep study as outpatient to assess for sleep apnea All labs will be repeated in the morning, we will follow up recommendations by Cardiology, we will keep patient on GI prophylaxis Protonix, DVT prophylaxis with Lovenox Patient reports having had a syncopal episode with ambulation in September,, since then, she would get intermittent neck pain as well as occipital headaches, we will obtain a CT head without contrast as well as a CT cervical spine without contrast to ensure there is no significant intracranial or cervical spine abnormality post fall Date of service: 02/22/2025 Plan of care was discussed with patient at bedside, William Fang MD Advanced Care Planning: Which of the following were discussed: Hospice care: Yes __ No _X_ Therapeutic options: Yes _X_ No __ Advance directives: Yes _X_ No __ Other discussions: Discussed with who?: Patient Voluntary nature of this service was explained to the patient? Yes _x_ No __ Amount of time spent: 20 minutes WILLIAM FANG MD Feb 22, 2025 15:04
[2025-02-22] MEDS ORDERED: GABA-529 PO (15:13)
[2025-02-22] MEDS ORDERED: CITA10TA89 PO (15:13)
--- NOTE | 2025-02-22 15:13 | NUR ---
MEDICATIONS UPDATE IN CHART
[2025-02-22] MEDS: LISINOPRIL 2.5 MG TABLET PO SCH (15:56)
--- NOTE | 2025-02-22 15:56 | HMCIMG ---
EXAM: CT Cervical Spine Without IV contrast. CLINICAL HISTORY: hx of fall w/ possible syncope in September,, neck pain since then TECHNIQUE: Axial computed tomography images of the cervical spine without intravenous contrast. Sagittal and coronal reformatted images were generated. COMPARISON: None provided. FINDINGS: ALIGNMENT: There is straightening of the cervical spine, which may reflect paraspinal muscle spasm. DEGENERATIVE CHANGES: There is cervical spondylosis evident by anterior marginal osteophytes, uncovertebral joint hypertrophy, and multiple-level facet joint osteoarthritis. There is moderate to severe multiple-level degenerative disc disease, more pronounced at the C4-C5 and C5-C6 levels. SOFT TISSUES: The prevertebral soft tissues are within normal limits. BONES: No acute fracture or aggressive appearing osseous lesion. IMPRESSION: 1. No acute fracture seen /[place]
[2025-02-22 16:10] LABS: ADD UA MICROSCOPIC NO; APPEARANCE,URINE CLEAR (CLEAR); GLUCOSE, URINE (UA) NEGATIVE (NEGATIVE); LEUKOCYTE ESTERASE ,URINE NEGATIVE Leu/uL (NEGATIVE); NITRATE,URINE NEGATIVE (NEGATIVE); OCCULT BLOOD,URINE NEGATIVE (NEGATIVE)
--- NOTE | 2025-02-22 16:14 | CONS ---
[facility] CARDIOLOGY CONSULTATION REPORT Cardiology consultation note dictated for Alyssa Bland MD Date Patient Seen: Feb 22, 2025 Time of Visit: 16:02 Requesting Physician: Morgan Fang MD Reason for Consultation: Chest pain History of Present Illness: This is an 84-year-old female with a past medical history of hypertension, hyperlipidemia, diabetes mellitus type 2, hypothyroidism, anxiety, and depression who presented to the ED with complaints of chest pain. Cardiology has been consulted for chest pain. The patient is a poor historian but was able to endorse complaints of right upper chest discomfort with radiation to the right arm that started this morning. The patient was unable to describe the quality of the chest discomfort but she admit it was a 6/10 intensity. There were no accompanying symptoms are aggravating factors. Chest discomfort was alleviated by sublingual nitroglycerin. Cardiac enzymes have been negative x2. EKG demonstrated normal sinus rhythm with a heart rate of 97bpm with a right bundle branch block. The patient also admitted to having almost daily midsternal chest discomfort for approximately 1 year in duration that can occur at rest. She denies dyspnea or fatigue on exertion. The patient was seen by Dr. Jose Zhou in May of 2021 as a consultation for evaluation of chest pain and due to her risk factors, she was recommended to undergo Lexiscan stress test and an echocardiogram but the patient failed to follow-up. Past Medical History: As per HPI and summarized below Past Surgical History: Hysterectomy Cholecystectomy Family History: The patient denies family history of heart disease. Social History: The patient lives with her daughter. Habits: Never smoker. Denies alcohol consumption. Denies illicit drug use Home Meds: Citalopram 10 mg daily Gabapentin 300 mg b.i.d. Alendronate 70 mg p.o. weekly Glipizide 10 mg b.i.d. Levothyroxine 50 mcg daily Lisinopril 2.5 mg daily Metformin 500 mg t.i.d. Simvastatin 40 mg q.h.s. Timolol 0.5%, 1 drop Op b.i.d. Latanoprost 0.005%, 1 drop op daily Current Meds: Current Medications Medications Dose Ordered Sig/Hyacinth Start Time Stop Time Status Last Admin Insulin Human Regular INSULIN SLIDING SCAL... ACHS 02/22/25 16:30 03/24/25 16:29 Dextrose 50 ml AD PRN 02/22/25 14:30 03/24/25 14:29 Glucagon 1 mg AD PRN 02/22/25 14:30 03/24/25 14:29 Aspirin 81 mg DAILY 02/23/25 09:00 03/25/25 08:59 Acetaminophen 650 mg Q6H PRN 02/22/25 14:30 03/24/25 14:29 Ondansetron HCl 4 mg Q6H PRN 02/22/25 14:30 03/24/25 14:29 Sodium Chloride 1,000 ml @ 50 mls/hr Q20H 02/22/25 14:30 03/24/25 14:29 02/22/25 15:02 Pantoprazole Sodium 40 mg Q24H 02/22/25 14:30 03/24/25 14:29 02/22/25 15:02 Enoxaparin Sodium 40 mg DAILY 02/23/25 09:00 03/25/25 08:59 Hydralazine HCl 5 mg Q6H PRN 02/22/25 14:30 03/24/25 14:29 Nitroglycerin 0.4 mg AD PRN 02/22/25 14:30 03/24/25 14:29 Gabapentin 300 mg BID 02/22/25 21:00 03/24/25 20:59 Levothyroxine Sodium 50 mcg DAILY 02/23/25 09:00 03/25/25 08:59 Lisinopril 2.5 mg Q24H 02/22/25 15:30 03/24/25 15:29 02/22/25 15:56 Citalopram Hydrobromide 10 mg DAILY 02/23/25 09:00 03/25/25 08:59 Simvastatin 40 mg HS 02/22/25 21:00 03/24/25 20:59 Review of Systems: CONST: No fever, fatigue, or weight changes. EYES: No recent vision problems. ENT: No congestion, ear pain, or sore throat. C/V: No chest pain, palpitations, or edema. RESP: No cough, congestion, wheezing or shortness of breath. GI: No abdominal pain, nausea, vomiting, constipation, or diarrhea. : No incontinence or dysuria. SKIN: No rash. NEURO: No headache, focal numbness or weakness, dizziness, or seizures. PSYCH: No depression or anxiety. HEME: No abnormal bruising or bleeding. LYMPH: No swollen glands. Physical Examination: GENERAL: No acute distress. HEAD: Normal with no signs of head trauma. EYES: Conjunctiva and sclera normal. ENT: Hearing grossly intact, normal oropharynx. NECK: Supple without JVD.Normal carotid upstrokes without bruits. LUNGS: Clear breath sounds bilaterally. No wheezes, or rhonchi. HEART: Normal rate and rhythm. Normal S1 and S2 without murmurs, gallop or rub. VASC: Peripheral pulses +2 bilaterally. ABD: Bowel sounds normal, soft, nontender, no masses, no organomegaly. No audible bruits. : Not examined LYMPH: No lymphadenopathy noted. EXT: No clubbing, cyanosis or edema. SKIN: No rashes or lesions noted. NEURO: Awake, alert, and oriented x3. Poor memory. Vital Signs (last 8hr) Date Time Temp Pulse Resp B/P (MAP) Pulse Ox O2 Delivery O2 Flow Rate FiO2 02/22/25 15:52 98.2 80 12 147/75 98 Room Air* 0 02/22/25 14:08 98.2 85 12 146/71 98 Room Air* 0 02/22/25 13:26 98.2 86 12 141/64 97 Room Air* 0 02/22/25 12:58 98.2 100 20 101/43 98 Room Air Laboratory: Hematology Labs: Test 02/22/25 13:13 Range/Units White Blood Count 6.7 4.8-10.8 K/uL Red Blood Count 4.09 4.00-5.50 MIL/uL Hemoglobin 12.8 12.0-16.0 g/dL Hematocrit 38.9 36-48 % Mean Corpuscular Volume 95.1 79-99 fL Mean Corpuscular Hemoglobin 31.3 27.0-33.0 pg Mean Corpuscular Hemoglobin Concent 32.9 32.0-36.0 g/dL Red Cell Distribution Width 12.8 11.0-15.5 % Platelet Count 282 130-400 K/uL Mean Platelet Volume 10.0 7.5-10.5 fL Immature Granulocyte % (Auto) 0.2 0-1 % Neutrophils (%) (Auto) 59.2 40.0-77.0 % Lymphocytes (%) (Auto) 28.7 21.0-51.0 % Monocytes (%) (Auto) 7.8 3.0-13.0 % Eosinophils (%) (Auto) 3.3 0.0-8.0 % Basophils (%) (Auto) 0.8 0.0-5.0 % Neutrophils # (Auto) 4.0 1.8-7.7 K/uL Lymphocytes # (Auto) 1.9 1.0-4.8 K/uL Monocytes # (Auto) 0.5 0.1-1.0 K/uL Eosinophils # (Auto) 0.22 0.00-0.70 K/uL Basophils # (Auto) 0.05 0.00-0.20 K/uL Absolute Immature Granulocyte (auto 0.01 0-1 K/uL Nucleated Red Blood Cells 0.0 0.0-0.19 % Chemistry Labs: Test 02/22/25 13:17 02/22/25 13:13 Range/Units Troponin I High Sensitivity 12 4-50 ng/L Sodium Level 133 L 136-145 mmol/L Potassium Level 3.9 3.5-5.1 mmol/L Chloride Level 99 L 101-111 mmol/L Carbon Dioxide Level 25 21-32 mmol/L Blood Urea Nitrogen 12 7-18 mg/dL Creatinine 1.0 0.5-1.0 mg/dL Glomerular Filtration Rate Calc 56 >90 mL/min Random Glucose 206 H 70-105 mg/dL Hemoglobin A1c 7.6 H 4.0-6.0 % Estimated Average Glucose (eAG) 171 H 70-126 mg/dL Total Calcium 10.4 H 8.5-10.1 mg/dL Total Creatine Kinase 26 # 21-232 U/L Triglycerides Level 126 30-200 mg/dL Cholesterol Level 195 <200 mg/dL LDL Cholesterol 109 H 0-99 mg/dL HDL Cholesterol 56 35-85 mg/dL Thyroid Stimulating Hormone (TSH) 1.92 # 0.36-3.74 uIU/mL Coagulation Labs: Test 02/22/25 13:13 Range/Units Prothrombin Time 10.5 9.6-11.6 SEC Prothromb Time International Ratio 0.99 0.85-1.15 Activated Partial Thromboplast Time 29.2 26.3-35.5 SEC Diagnostics / Radiology: Impression and Plan: Chest pain Hypertension Hyperlipidemia, LDL 109 Diabetes mellitus type 2, A1c 7.6% Hypothyroidism Chest pain Cardiac enzymes have been negative x2 EKG demonstrated normal sinus rhythm with a heart rate of 97bpm with a right bundle branch block. -Lexiscan stress test in AM -Obtain 2D Echocardiogram to assess LV function and valvular pathology ROBBIE MARSH [employer] SALES REPRESENTATIVE Feb 22, 2025 16:14
[2025-02-22 18:04] LABS: CREATINE KINASE, TOTAL 29.0 U/L (21-232)
[2025-02-22] MEDS: GABAPENTIN 300 MG CAPSULE PO SCH (20:56)
[2025-02-22 21:45] VITALS: BP 166/128; PULSE 94; RESP 22; TEMP 98.3; O2SAT 98
[2025-02-22 22:10] VITALS: BP 151/78; PULSE 89; RESP 22
[2025-02-23] VITALS (7 sets, daily range): BP systolic 133–143; BP diastolic 64–67; PULSE 76–85; RESP 18; TEMP 97.8–98.7; O2SAT 97–98
[2025-02-23 01:45] LABS: CREATINE KINASE, TOTAL 41.0 U/L (21-232)
--- NOTE | 2025-02-23 05:23 | HMCIMG ---
EXAMINATION: DUPLEX ULTRASOUND EXAMINATION OF THE BILATERAL CAROTID AND VERTEBRAL ARTERIES. CLINICAL HISTORY: History of intermittent dizziness with ambulation. Rule out carotid artery stenosis. COMPARISON: None provided. TECHNIQUE: Real-time ultrasound scan of the bilateral carotid and vertebral arteries, 2-D grayscale, with color Doppler flow and spectral waveform analysis. FINDINGS: Color and spectral Doppler interrogation of the carotid vessels on the right demonstrate peak systolic velocities as follows: CCA (Proximal and distal): 109 and 59 cm/s respectively. ECA: 88 cm/s. ICA (Proximal, mid, and distal): 53, 74, and 43 cm/s respectively. Vertebral artery demonstrates antegrade flow: 41 cm/s. Right ICA/CCA ratio: 1.2 Peak systolic velocities on the left are as follows: CCA (Proximal and distal): 150 and 79 cm/s respectively. Bulb: 50 cm/s. ECA: 79 cm/s. ICA (Proximal, mid, and distal): 48, 63, and 82 cm/s respectively. Vertebral artery demonstrates antegrade flow: 28 cm/s. Left ICA/CCA ratio: 1.0 Both the common carotid arteries and their branches reveal mild intimal thickening. IMPRESSION: Mild intimal thickening in the bilateral carotid arteries and their branches. There is no significant stenosis or flow limiting lesions. /[place]
[2025-02-23 05:33] LABS: IMMATURE GRANULOCYTE ABSOLUTE 0.01 K/uL (0-1); NUCLEATED RED BLOOD CELLS 0.0 % (0.0-0.19); PLATELET COUNT (AUTO) 267 K/uL (130-400); RED BLOOD CELL COUNT(AUTO) 3.78 MIL/uL (4.00-5.50); RED CELL DISTRIBUTION WIDTH 12.7 % (11.0-15.5); WHITE BLOOD COUNT (AUTO) 7.3 K/uL (4.8-10.8)
[2025-02-23 05:55] LABS: CREATININE 0.7 mg/dL (0.5-1.0); GLOMERULAR FILTR. RATE CALC 86.0 mL/min (>90); GLUCOSE,RANDOM 119.0 mg/dL (70-105); SODIUM SERUM 140.0 mmol/L (136-145); UREA NITROGEN, BLOOD 10.0 mg/dL (7-18)
[2025-02-23 06:24] LABS: CREATINE KINASE, TOTAL 38.0 U/L (21-232)
[2025-02-23] MEDS: MAGNESIUM 2GM PREMIX 50ML 50 ML IV SCH (06:31)
[2025-02-23] MEDS: REGADENOSON 0.4 MG/5 ML PF SYG IVP ONE (08:08)
[2025-02-23] MEDS ORDERED: PoTASSium chl 10% ELIXIR 20MEQ 20 MEQ/15 ML UDCUP PO PRN (08:30)
[2025-02-23] MEDS: ASPIRIN 81MG CHEW TAB PO SCH (08:46)
[2025-02-23] MEDS: ENOXAPARIN SODIUM 40 MG/0.4 ML SYRINGE SQ SCH (08:47)
--- NOTE | 2025-02-23 10:24 | NUR ---
DCP;HOME Pt states daughter Sara Perdomo [phone] lives with her and assists as needed. Pt remains independent and able to complete her ADLS on her, ambulates using a walker with seat. No HH or HD services.PCP is Mireya Marcum and uses [facility] for rx needs. Pt denies dc needs and will return home at dc Addendum: 02/23/25 at 1030 by GAYLE BOYD SS Amended: Links added.
--- NOTE | 2025-02-23 10:25 | PN ---
[facility] PROGRESS NOTE Date of Service: Feb 23, 2025 Time of Service: 10:23 SUBJECTIVE: This 84-year-old female with underlying history of type 2 diabetes mellitus, hypertension, hyperlipidemia, hypothyroidism, presented to the ER for further evaluation of chest pain. Pain started earlier this morning and lasted for 30 minutes. Pain was moderate in intensity where she rated it as 6/10 with associated radiation to the right shoulder. Patient denies any previous history of [place]. 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 Patient states that her chest pain significantly improved after receiving a dose of nitroglycerin from EMS. Chest pain has mostly resolved since then. Patient denies any fevers, chills, shortness of breath. Denies any long travel. Denies any pleuritic chest pain or lower extremity edema. Patient reports that she does not ambulate much due to issues with dizziness previously. She reports having had a possible syncopal fall in September of this year while she was ambulating. She reports having hit her head and since then, she would get up intermittent episodes of neck pain as well. Reports that her ambulation is limited due to issues with recurrent hypoglycemic events previously. Her PCP discontinued glipizide she thinks was contributing towards the hypoglycemia. She uses a walker to ambulate. Patient reports having history of long-term diabetes. She is currently m aintained on outpatient treatment with metformin. She reports having issues with snoring previously but denies having had a sleep study to assess for sleep apnea. On presentation to the hospital, patient was noted to be afebrile with T-max of 98.2 F, heart rate of 100, blood pressure of 101/43. Patient was saturating 98% on room air. CBC on presentation was unremarkable. BMP showed sodium of 133, potassium 3.9, chloride of 99, BUN of 12, creatinine 1.0, blood glucose of 206, of 10.4, CK of 26, initial high sensitivity cardiac troponin of nine. Patient will be Placed under observation under hospitalist service. Due to underlying age and improvement of chest pain with nitroglycerin, she will undergo further workup to rule out active ACS. Due to underlying risk factors, consultation with Cardiology will be requested for further assessment of risk stratification for coronary artery disease. We will see how patient progresses in the next 24-48 hours. 02.23.2025: Patient is seen and evaluated in room 205. She denies chest pain but reports neck pain, for which a Lidocaine 4% patch was ordered and provided some relief. Magnesium level is 1.7 and has been replaced per protocol. Her HbA1c is 7.6, and she has been placed on an insulin sliding scale. CT cervical spine shows severe osteoarthritis, while the chest X-ray, head CT, and carotid ultrasound are unremarkable. The patient completed a Lexiscan stress test and a 2D echocardiogram, with reports currently pending. We will continue to monitor and follow cardiology recommendations. REVIEW OF SYSTEMS CONSTITUTIONAL: Denies fevers, chills, or night sweats. No unintentional weight loss reported. NEUROLOGICAL: Denies headache, amaurosis fugax, motor weakness, sensory deficit, vertigo/spinning sensation, gait abnormalities, or tremors. ENT: No hearing loss, otalgia, otorrhea, rhinitis, rhinorrhea, hoarseness, or sore throat. CARDIOVASCULAR: right sided chest pain yesterday with associated radiation to the right shoulder PULMONARY: Denies any shortness of breath, cough, phlegm/sputum, hemoptysis, pleuritic chest pain. SLEEP: Denies morning headaches, daytime somnolence or napping. Denies difficulty falling asleep, staying asleep, waking from sleep. Denies knowledge of snoring. GASTROINTESTINAL: Denies any type of dysphagia to either liquids or solids. Denies nausea, vomiting, pyrosis, early satiety, abdominal pain, diarrhea, constipation, or changes in stool consistency or caliber. Denies coffee-ground emesis, hematemesis, hematochezia, or melanotic stools. GENITOURINARY: Denies frequency, urgency, nocturia, hematuria or incontinence (Storage/Irritative symptoms.) Low urinary stream, straining to void, urinary intermittency or hesitancy, splitting of the voiding stream, terminal dribbling. ENDOCRINOLOGIC: reports having issues with hypoglycemia previously HEMATOLOGIC: Denies thrombophilia/previous clots, or coagulopathy/bleeding disorders. ONCOLOGIC: Denies personal history of malignancy. DERMATOLOGIC: Denies rashes or pruritus. PSYCHIATRIC: Denies any suicidal or homicidal ideation. Denies hallucinations. PHYSICAL EXAM GENERAL APPEARANCE: The patient is awake, alert, and oriented, in no acute cardiopulmonary distress. NEUROLOGICAL: Motor is 5/5 in bilateral upper and lower extremities proximal to distal. No sensory deficits. HEENT: Face is symmetric. Pupils are equal and reactive. Extraocular movements are intact. NECK: Supple. No thyromegaly. No submental, submandibular, pre-/postauricular, occipital or supraclavicular lymphadenopathy. CHEST: Normal chest expansion. No Telemetry. LUNGS: Absence of any rales, rhonchi or any wheezing. CARDIOVASCULAR: Regular. S1 and S2 normal. No appreciable rubs, murmurs or gallops. ABDOMEN: Soft, nontender, and nondistended. There is no rebound, voluntary guarding, or rigidity. : Deferred. No Becerra. EXTREMITIES: Non-edematous and not cyanotic. No clubbing. Good capillary refill. SKIN: No skin breakdown. Vital Signs (last 8hr) Date Time Temp Pulse Resp B/P (MAP) Pulse Ox O2 Delivery O2 Flow Rate FiO2 02/23/25 07:58 97.9 76 18 140/66 94 Room Air 21 LABS: Laboratory: Test 02/23/25 05:16 02/23/25 04:54 02/22/25 15:59 02/22/25 13:13 Range/Units White Blood Count 7.3 4.8-10.8 K/uL Red Blood Count 3.78 L 4.00-5.50 MIL/uL Hemoglobin 12.0 12.0-16.0 g/dL Hematocrit 35.5 L 36-48 % Mean Corpuscular Volume 93.9 79-99 fL Mean Corpuscular Hemoglobin 31.7 27.0-33.0 pg Mean Corpuscular Hemoglobin Concent 33.8 32.0-36.0 g/dL Red Cell Distribution Width 12.7 11.0-15.5 % Platelet Count 267 130-400 K/uL Mean Platelet Volume 10.2 7.5-10.5 fL Immature Granulocyte % (Auto) 0.1 0-1 % Neutrophils (%) (Auto) 51.4 40.0-77.0 % Lymphocytes (%) (Auto) 34.1 21.0-51.0 % Monocytes (%) (Auto) 9.6 3.0-13.0 % Eosinophils (%) (Auto) 4.1 0.0-8.0 % Basophils (%) (Auto) 0.7 0.0-5.0 % Neutrophils # (Auto) 3.8 1.8-7.7 K/uL Lymphocytes # (Auto) 2.5 1.0-4.8 K/uL Monocytes # (Auto) 0.7 0.1-1.0 K/uL Eosinophils # (Auto) 0.30 0.00-0.70 K/uL Basophils # (Auto) 0.05 0.00-0.20 K/uL Absolute Immature Granulocyte (auto 0.01 0-1 K/uL Nucleated Red Blood Cells 0.0 0.0-0.19 % Sodium Level 140 136-145 mmol/L Potassium Level 3.5 3.5-5.1 mmol/L Chloride Level 108 101-111 mmol/L Carbon Dioxide Level 25 21-32 mmol/L Blood Urea Nitrogen 10 7-18 mg/dL Creatinine 0.7 0.5-1.0 mg/dL Glomerular Filtration Rate Calc 86 >90 mL/min Random Glucose 119 H 70-105 mg/dL Total Calcium 10.0 8.5-10.1 mg/dL Ionized Calcium 1.33 1.15-1.33 MMOL/L Magnesium Level 1.70 L 1.80-2.40 mg/dL Total Creatine Kinase 38 21-232 U/L Troponin I High Sensitivity 10.0 4-50 ng/L Whole Blood Glucose 116 H 70-110 MG/DL Urine Color STRAW YELLOW Urine Appearance CLEAR CLEAR Urine pH 6.5 5.0-8.0 Urine Specific [place] 1.006 1.001-1.031 Urine Protein NEGATIVE NEGATIVE mg/dL Urine Glucose (UA) NEGATIVE NEGATIVE mg/dL Urine Ketones NEGATIVE NEGATIVE mg/dL Urine Occult Blood NEGATIVE NEGATIVE Urine Nitrate NEGATIVE NEGATIVE Urine Bilirubin NEGATIVE NEGATIVE mg/dL Urine Urobilinogen 0.2 0.2-1.0 mg/dL Urine Leukocyte Esterase NEGATIVE NEGATIVE Brigida/uL Prothrombin Time 10.5 9.6-11.6 SEC Prothromb Time International Ratio 0.99 0.85-1.15 Activated Partial Thromboplast Time 29.2 26.3-35.5 SEC Hemoglobin A1c 7.6 H 4.0-6.0 % Estimated Average Glucose (eAG) 171 H 70-126 mg/dL Triglycerides Level 126 30-200 mg/dL Cholesterol Level 195 <200 mg/dL LDL Cholesterol 109 H 0-99 mg/dL HDL Cholesterol 56 35-85 mg/dL Thyroid Stimulating Hormone (TSH) 1.92 # 0.36-3.74 uIU/mL Current Medications Medications (Trade) Dose Ordered Sig/Hyacinth Route PRN Reason Start Time Stop Time Status Last Admin Dose Admin Acetaminophen (TYLenol 325MG TAB) 650 mg Q6H PRN PO MILD PAIN (1-3) 02/22/25 14:30 03/24/25 14:29 02/23/25 08:45 650 MG Aspirin (Aspirin 81mg Chew Tab) 81 mg DAILY PO 02/23/25 09:00 03/25/25 08:59 02/23/25 08:46 81 MG Citalopram Hydrobromide (CeleXA 20MG TAB) 10 mg DAILY PO 02/23/25 09:00 03/25/25 08:59 02/23/25 08:45 10 MG Dextrose (D50w) 50 ml AD PRN IV HYPOGLYCEMIA PROTOCOL 02/22/25 14:30 03/24/25 14:29 Enoxaparin Sodium (Lovenox) 40 mg DAILY SQ 02/23/25 09:00 03/25/25 08:59 02/23/25 08:47 40 MG Gabapentin (NEURontin 300 MG CAP) 300 mg BID PO 02/22/25 21:00 03/24/25 20:59 02/23/25 08:45 300 MG Glucagon (Glucagon 1mg Kit) 1 mg AD PRN IM HYPOGLYCEMIA PROTOCOL 02/22/25 14:30 03/24/25 14:29 Hydralazine HCl (APRESOLine 20MG INJ) 5 mg Q6H PRN IV ADMINISTER FOR SBP > 160 02/22/25 14:30 03/24/25 14:29 Insulin Human Regular (humuLIN R 100 UNIT/ML 3ML) INSULIN SLIDING SCAL... ACHS SQ 02/22/25 16:30 03/24/25 16:29 02/22/25 20:59 3 UNIT Levothyroxine Sodium (SYNTHroid 50MCG TAB) 50 mcg SYN PO 02/24/25 06:30 03/26/25 06:29 Lisinopril (Prinivil 2.5mg) 2.5 mg Q24H PO 02/22/25 15:30 03/24/25 15:29 02/22/25 15:56 2.5 MG Magnesium Sulfate 50 ml @ 0 mls/hr PROTOCOL IV 02/23/25 05:45 03/25/25 05:44 02/23/25 06:31 25 MLS/HR Nitroglycerin (Nitrostat) 0.4 mg AD PRN SL CHEST PAIN 02/22/25 14:30 03/24/25 14:29 Ondansetron HCl (zoFRAN 4MG INJ) 4 mg Q6H PRN IVP NAUSEA/VOMITING 02/22/25 14:30 03/24/25 14:29 Pantoprazole Sodium (PROTonix 40MG TAB) 40 mg Q24H PO 02/22/25 14:30 03/24/25 14:29 02/22/25 15:02 40 MG Potassium Chloride 100 ml @ 100 mls/hr AD PRN IV POTASSIUM PROTOCOL 02/23/25 08:30 03/25/25 08:29 Potassium Chloride (K-Dur/Klor-Con 20meq) 20 meq AD PRN PO POTASSIUM PROTOCOL 02/23/25 08:30 03/25/25 08:29 Potassium Chloride (KCl 10% Elixir 20meq/15ml) 20 meq AD PRN PO POTASSIUM PROTOCOL 02/23/25 08:30 03/25/25 08:29 Simvastatin (zoCOR) 40 mg HS PO 02/22/25 21:00 03/24/25 20:59 02/22/25 20:56 40 MG Sodium Chloride 1,000 ml @ 50 mls/hr Q20H IV 02/22/25 14:30 03/24/25 14:29 02/22/25 15:02 50 MLS/HR DIAGNOSTICS / RADIOLOGY: [address] [address] [place] [address] IMAGING REPORT Signed PATIENT: EVELYN MALONEY MR#: [id number] : 1940 SEX: F AGE: 84 LOCATION: [facility] ORDER 1305 STATUS: REG ER REPORT#: [id number] SERVICE 1300 REASON: cp ORDERING PHYSICIAN: KELBY GOMEZ MD PROCEDURE: CXR1VW - CHEST 1VW EXAM: CR Chest, 1 View. CLINICAL HISTORY: cp COMPARISON: None provided. FINDINGS: LUNGS: The lungs show no infiltrate or other acute finding. PLEURAL SPACES: No evidence of pleural effusion or pneumothorax. MEDIASTINUM: Cardiac size and mediastinal contours within normal limits. BONES: No aggressive appearing osseous lesion seen. IMPRESSION: No acute cardiopulmonary pathology is evident. /[place] DICTATED BY: MIRYAM TOMAS Jr., MD DATE: 02/22/251508 ELECTRONICALLY SIGNED BY: MIRYAM TOMAS Jr., MD DATE: 02/22/251508 [address] [address] IMAGING REPORT Signed PATIENT: EVELYN MALONEY MR#: [id number] : 1940 SEX: F AGE: 84 LOCATION: [facility] ORDER 19 STATUS: [facility] REPORT#: [id number] SERVICE 141 REASON: hx of fall w/ possible syncope in September,, neck pain since then ORDERING PHYSICIAN: BRE FRASER MD PROCEDURE: C SPIN WO - CT CERVICAL SPINE W/O CONTRAST EXAM: CT Cervical Spine Without IV contrast. CLINICAL HISTORY: hx of fall w/ possible syncope in September,, neck pain since then TECHNIQUE: Axial computed tomography images of the cervical spine without intravenous contrast. Sagittal and coronal reformatted images were generated. COMPARISON: None provided. FINDINGS: ALIGNMENT: There is straightening of the cervical spine, which may reflect paraspinal muscle spasm. DEGENERATIVE CHANGES: There is cervical spondylosis evident by anterior marginal osteophytes, uncovertebral joint hypertrophy, and multiple-level facet joint osteoarthritis. There is moderate to severe multiple-level degenerative disc disease, more pronounced at the C4-C5 and C5-C6 levels. SOFT TISSUES: The prevertebral soft tissues are within normal limits. BONES: No acute fracture or aggressive appearing osseous lesion. IMPRESSION: 1. No acute fracture seen /[place] DICTATED BY: STEVE GERARDO MD DATE: 02/22/251655 ELECTRONICALLY SIGNED BY: STEVE GERARDO MD DATE: 02/22/25 1656 [facility] [address] [place] [id number] IMAGING REPORT Signed PATIENT: EVELYN MALONEY MR#: [id number] : 1940 SEX: F AGE: 84 LOCATION: [facility] ORDER 1420 STATUS: ADM IN REPORT#: [id number] SERVICE 1419 REASON: hx of fall w/ possible syncope in September,, neck pain since then ORDERING PHYSICIAN: BRE FRASER MD PROCEDURE: HEAD WO - CT HEAD/BRAIN W/O CONTRAST EXAM: CT Head Without IV contrast. CLINICAL HISTORY: hx of fall w/ possible syncope in September,, neck pain since then TECHNIQUE: Axial computed tomography images of the head/brain without intravenous contrast. COMPARISON: None provided. FINDINGS: BRAIN: No evidence of acute hemorrhage. No mass lesion. No CT evidence for acute territorial infarct. No midline shift or extra-axial collections. VENTRICLES: No hydrocephalus. ORBITS: The orbits are unremarkable. SINUSES AND MASTOIDS: The paranasal sinuses and mastoid air cells are clear. BONES: No fracture. SOFT TISSUES: Unremarkable. IMPRESSION: No acute intracranial abnormality. /[place] DICTATED BY: MRIYAM TOMAS Jr., MD DATE: 02/22/25 2143 ELECTRONICALLY SIGNED BY: MIRYAM TOMAS Jr., MD DATE: 02/22/25 1508 [place] [id number] [id number] IMAGING REPORT Signed PATIENT: EVELYN MALONEY MR#: [id number] : 1940 SEX: F AGE: 84 LOCATION: 2AH ORDER 1530 STATUS: ADM IN REPORT#: [id number] SERVICE 1528 REASON: hx of intermttent dizziness with ambulation, r/o carotid artery stenosis ORDERING PHYSICIAN: BRE FRASER MD PROCEDURE: CAROTID - US CAROTID DUPLEX EXAMINATION: DUPLEX ULTRASOUND EXAMINATION OF THE BILATERAL CAROTID AND VERTEBRAL ARTERIES. CLINICAL HISTORY: History of intermittent dizziness with ambulation. Rule out carotid artery stenosis. COMPARISON: None provided. TECHNIQUE: Real-time ultrasound scan of the bilateral carotid and vertebral arteries, 2-D grayscale, with color Doppler flow and spectral waveform analysis. FINDINGS: Color and spectral Doppler interrogation of the carotid vessels on the right demonstrate peak systolic velocities as follows: CCA (Proximal and distal): 109 and 59 cm/s respectively. ECA: 88 cm/s. ICA (Proximal, mid, and distal): 53, 74, and 43 cm/s respectively. Vertebral artery demonstrates antegrade flow: 41 cm/s. Right ICA/CCA ratio: 1.2 Peak systolic velocities on the left are as follows: CCA (Proximal and distal): 150 and 79 cm/s respectively. Bulb: 50 cm/s. ECA: 79 cm/s. ICA (Proximal, mid, and distal): 48, 63, and 82 cm/s respectively. Vertebral artery demonstrates antegrade flow: 28 cm/s. Left ICA/CCA ratio: 1.0 Both the common carotid arteries and their branches reveal mild intimal thickening. IMPRESSION: Mild intimal thickening in the bilateral carotid arteries and their branches. There is no significant stenosis or flow limiting lesions. /[place] DICTATED BY: MIRYAM TOMAS Jr., MD DATE: 02/23/25621 ELECTRONICALLY SIGNED BY: MIRYAM TOMAS Jr., MD DATE: 02/23/25621 ASSESSMENT: Chest pain with atypical features, POA Underlying history of type 2 diabetes mellitus, POA Hypertension, POA Hyperlipidemia, POA Suspected syncope in September,, POA EKG with right bundle branch block, POA Untreated sleep apnea, POA Hypothyroidism, POA Hypercalcemia, mild, POA PLAN: Chest pain with atypical features, EKG with right bundle branch block, POA * Lexiscan nuclear stress test and 2D echocardiogram were completed today; awaiting final interpretation. * Troponin level is 10 * EKG shows sinus rhythm with right bundle branch block * Will follow recommendations by Cardiology Underlying history of type 2 diabetes mellitus, POA * Continue home medications * Continue blood glucose monitoring AC/HS * Implemented Insulin sliding scale Hypertension, POA * Continue home medication - lisinopril 2.5mg * Hydralazine 5mg IV Q6H PRN for systolic BP >160mg Hyperlipidemia, POA * Continue home simvastatin 40 mg daily * Reinforce diet and lifestyle counseling Suspected syncope in September,, POA * Patient reports having had a syncopal episode with ambulation in September,, since then, she would get intermittent neck pain as well as occipital he adaches, * CT head without contrast and CT cervical spine without contrast - no significant intracranial or cervical spine abnormality post fall , moderate to severe multiple-level degenerative disc disease, more pronounced at the C4-C5 and C5-C6 levels. Untreated sleep apnea, POA * Will refer to PCP for sleep study as outpatient to assess for sleep apnea Hypothyroidism, POA * Continue levothyroxine 15 mcg daily Hypercalcemia, mild, POA - Possible primary hyperparathyroidism * PTH - 223.3 and vitamin-D -8.3 * Calcium was 10.4 on admission ,now 10.0 improving * Maintain good hydration * Vit D 50,000 units capsule - once given * Will advice patient to follow up with endocrinology on outpatient basis GI prophylaxis Protonix DVT prophylaxis with Lovenox ATTESTATION BY PHYSICIAN I have seen and examined the patient. I reviewed the documentation, medical decision making, and treatment plan as noted by the resident provider above. I agree with the findings and plan of care. Richard Kimball MD, LAKSHMI MD Feb 23, 2025 10:25
--- NOTE | 2025-02-23 12:29 | PN ---
PROGRESS NOTE PROBLEM LIST: []Chest pain Hypertension Hyperlipidemia, LDL 109 Diabetes mellitus type 2, A1c 7.6% Hypothyroidism INTERIM HISTORY OF PRESENT ILLNESS: []pt is without complaints and denies any cp or sob currently REVIEW OF SYSTEMS: No fever, headache, chest pain, abdominal pain, nausea, vomiting, or diarrhea. VITAL SIGNS Vital Signs Date Time Temp Pulse Resp B/P (MAP) Pulse Ox O2 Delivery O2 Flow Rate FiO2 02/23/25 12:00 98.2 85 18 143/64 95 Room Air 21 02/22/25 21:45 0 Laboratory Tests 02/22/25 13:13 02/23/25 05:16 LABS/MEDS Laboratory Tests Test 02/22/25 13:13 02/22/25 13:17 02/22/25 15:59 02/22/25 16:49 White Blood Count 6.7 K/uL (4.8-10.8) Red Blood Count 4.09 MIL/uL (4.00-5.50) Hemoglobin 12.8 g/dL (12.0-16.0) Hematocrit 38.9 % (36-48) Mean Corpuscular Volume 95.1 fL (79-99) Mean Corpuscular Hemoglobin 31.3 pg (27.0-33.0) Mean Corpuscular Hemoglobin Concent 32.9 g/dL (32.0-36.0) Red Cell Distribution Width 12.8 % (11.0-15.5) Platelet Count 282 K/uL (130-400) Mean Platelet Volume 10.0 fL (7.5-10.5) Immature Granulocyte % (Auto) 0.2 % (0-1) Neutrophils (%) (Auto) 59.2 % (40.0-77.0) Lymphocytes (%) (Auto) 28.7 % (21.0-51.0) Monocytes (%) (Auto) 7.8 % (3.0-13.0) Eosinophils (%) (Auto) 3.3 % (0.0-8.0) Basophils (%) (Auto) 0.8 % (0.0-5.0) Neutrophils # (Auto) 4.0 K/uL (1.8-7.7) Lymphocytes # (Auto) 1.9 K/uL (1.0-4.8) Monocytes # (Auto) 0.5 K/uL (0.1-1.0) Eosinophils # (Auto) 0.22 K/uL (0.00-0.70) Basophils # (Auto) 0.05 K/uL (0.00-0.20) Absolute Immature Granulocyte (auto 0.01 K/uL (0-1) Nucleated Red Blood Cells 0.0 % (0.0-0.19) Prothrombin Time 10.5 SEC (9.6-11.6) Prothromb Time International Ratio 0.99 (0.85-1.15) Activated Partial Thromboplast Time 29.2 SEC (26.3-35.5) Sodium Level 133 mmol/L (136-145) L Potassium Level 3.9 mmol/L (3.5-5.1) Chloride Level 99 mmol/L (101-111) L Carbon Dioxide Level 25 mmol/L (21-32) Blood Urea Nitrogen 12 mg/dL (7-18) Creatinine 1.0 mg/dL (0.5-1.0) Glomerular Filtration Rate Calc 56 mL/min (>90) Random Glucose 206 mg/dL (70-105) H Hemoglobin A1c 7.6 % (4.0-6.0) H Estimated Average Glucose (eAG) 171 mg/dL (70-126) H Total Calcium 10.4 mg/dL (8.5-10.1) H Total Creatine Kinase 26 U/L (21-232) # Troponin I High Sensitivity 9 ng/L (4-50) 12 ng/L (4-50) Triglycerides Level 126 mg/dL (30-200) Cholesterol Level 195 mg/dL (<200) LDL Cholesterol 109 mg/dL (0-99) H HDL Cholesterol 56 mg/dL (35-85) Thyroid Stimulating Hormone (TSH) 1.92 uIU/mL (0.36-3.74) # Urine Color STRAW (YELLOW) Urine Appearance CLEAR (CLEAR) Urine pH 6.5 (5.0-8.0) Urine Specific Summers 1.006 (1.001-1.031) Urine Protein NEGATIVE mg/dL (NEGATIVE) Urine Glucose (UA) NEGATIVE mg/dL (NEGATIVE) Urine Ketones NEGATIVE mg/dL (NEGATIVE) Urine Occult Blood NEGATIVE (NEGATIVE) Urine Nitrate NEGATIVE (NEGATIVE) Urine Bilirubin NEGATIVE mg/dL (NEGATIVE) Urine Urobilinogen 0.2 mg/dL (0.2-1.0) Urine Leukocyte Esterase NEGATIVE Brigida/uL Whole Blood Glucose 150 MG/DL (70-110) H Test 02/22/25 17:43 02/22/25 20:50 02/23/25 00:23 02/23/25 04:54 Total Creatine Kinase 29 U/L (21-232) 41 U/L (21-232) # Troponin I High Sensitivity 19.9 ng/L (4-50) 13.0 ng/L (4-50) Whole Blood Glucose 215 MG/DL (70-110) H 116 MG/DL (70-110) H Test 02/23/25 05:16 02/23/25 11:11 White Blood Count 7.3 K/uL (4.8-10.8) Red Blood Count 3.78 MIL/uL (4.00-5.50) L Hemoglobin 12.0 g/dL (12.0-16.0) Hematocrit 35.5 % (36-48) L Mean Corpuscular Volume 93.9 fL (79-99) Mean Corpuscular Hemoglobin 31.7 pg (27.0-33.0) Mean Corpuscular Hemoglobin Concent 33.8 g/dL (32.0-36.0) Red Cell Distribution Width 12.7 % (11.0-15.5) Platelet Count 267 K/uL (130-400) Mean Platelet Volume 10.2 fL (7.5-10.5) Immature Granulocyte % (Auto) 0.1 % (0-1) Neutrophils (%) (Auto) 51.4 % (40.0-77.0) Lymphocytes (%) (Auto) 34.1 % (21.0-51.0) Monocytes (%) (Auto) 9.6 % (3.0-13.0) Eosinophils (%) (Auto) 4.1 % (0.0-8.0) Basophils (%) (Auto) 0.7 % (0.0-5.0) Neutrophils # (Auto) 3.8 K/uL (1.8-7.7) Lymphocytes # (Auto) 2.5 K/uL (1.0-4.8) Monocytes # (Auto) 0.7 K/uL (0.1-1.0) Eosinophils # (Auto) 0.30 K/uL (0.00-0.70) Basophils # (Auto) 0.05 K/uL (0.00-0.20) Absolute Immature Granulocyte (auto 0.01 K/uL (0-1) Nucleated Red Blood Cells 0.0 % (0.0-0.19) Sodium Level 140 mmol/L (136-145) Potassium Level 3.5 mmol/L (3.5-5.1) Chloride Level 108 mmol/L (101-111) Carbon Dioxide Level 25 mmol/L (21-32) Blood Urea Nitrogen 10 mg/dL (7-18) Creatinine 0.7 mg/dL (0.5-1.0) Glomerular Filtration Rate Calc 86 mL/min (>90) Random Glucose 119 mg/dL (70-105) H Total Calcium 10.0 mg/dL (8.5-10.1) Ionized Calcium 1.33 MMOL/L (1.15-1.33) Magnesium Level 1.70 mg/dL (1.80-2.40) L Total Creatine Kinase 38 U/L (21-232) Troponin I High Sensitivity 10.0 ng/L (4-50) Whole Blood Glucose 195 MG/DL (70-110) #H Current Medications Insulin Human Regular INSULIN SLIDING SCAL... ACHS SQ Last administered on 02/23/25at 11:42; Start 02/22/25 at 16:30; Stop 03/24/25 at 16:29 Dextrose 50 ml AD PRN IV; Start 02/22/25 at 14:30; Stop 03/24/25 at 14:29 Glucagon 1 mg AD PRN IM; Start 02/22/25 at 14:30; Stop 03/24/25 at 14:29 Aspirin 81 mg DAILY PO Last administered on 02/23/25at 08:46; Start 02/23/25 at 09:00; Stop 03/25/25 at 08:59 Acetaminophen 650 mg Q6H PRN PO Last administered on 02/23/25at 08:45; Start 02/22/25 at 14:30; Stop 03/24/25 at 14:29 Ondansetron HCl 4 mg Q6H PRN IVP; Start 02/22/25 at 14:30; Stop 03/24/25 at 14:29 Sodium Chloride 1,000 ml @ 50 mls/hr Q20H IV Last administered on 02/22/25at 15:02; Start 02/22/25 at 14:30; Stop 03/24/25 at 14:29 Pantoprazole Sodium 40 mg Q24H PO Last administered on 02/22/25at 15:02; Start 02/22/25 at 14:30; Stop 03/24/25 at 14:29 Enoxaparin Sodium 40 mg DAILY SQ Last administered on 02/23/25at 08:47; Start 02/23/25 at 09:00; Stop 03/25/25 at 08:59 Hydralazine HCl 5 mg Q6H PRN IV; Start 02/22/25 at 14:30; Stop 03/24/25 at 14:29 Nitroglycerin 0.4 mg AD PRN SL; Start 02/22/25 at 14:30; Stop 03/24/25 at 14:29 Gabapentin 300 mg BID PO Last administered on 02/23/25at 08:45; Start 02/22/25 at 21:00; Stop 03/24/25 at 20:59 Levothyroxine Sodium 50 mcg SYN PO; Start 02/24/25 at 06:30; Stop 03/26/25 at 06:29 Lisinopril 2.5 mg Q24H PO Last administered on 02/22/25at 15:56; Start 02/22/25 at 15:30; Stop 03/24/25 at 15:29 Citalopram Hydrobromide 10 mg DAILY PO Last administered on 02/23/25at 08:45; Start 02/23/25 at 09:00; Stop 03/25/25 at 08:59 Simvastatin 40 mg HS PO Last administered on 02/22/25at 20:56; Start 02/22/25 at 21:00; Stop 03/24/25 at 20:59 Magnesium Sulfate 50 ml @ 0 mls/hr PROTOCOL IV Last administered on 02/23/25at 06:31; Start 02/23/25 at 05:45; Stop 03/25/25 at 05:44 Regadenoson 0.4 mg STK-MED ONCE IVP Last administered on 02/23/25at 08:08; Start 02/23/25 at 07:31; Stop 02/23/25 at 07:31; Status DC Potassium Chloride 100 ml @ 100 mls/hr AD PRN IV; Start 02/23/25 at 08:30; Stop 03/25/25 at 08:29 Potassium Chloride 20 meq AD PRN PO; Start 02/23/25 at 08:30; Stop 03/25/25 at 08:29 Potassium Chloride 20 meq AD PRN PO; Start 02/23/25 at 08:30; Stop 03/25/25 at 08:29 Lidocaine 1 each ONCE ONCE TP; Start 02/23/25 at 12:00; Stop 02/23/25 at 12:01; Status DC PHYSICAL EXAMINATION: GENERAL: No acute distress. HEENT: Normocephalic, atraumatic. CARDIAC: Positive S1 and S2. No murmurs. LUNGS: Clear to auscultation bilaterally. ABDOMEN: Bowel sounds present, soft, nontender. EXTREMITIES: No edema bilaterally. NEUROLOGIC: Cranial nerves 2-12 grossly intact. PSYCHIATRIC: Calm. TELEMETRY: Sinus ASSESSMENT: []Chest pain Hypertension Hyperlipidemia, LDL 109 Diabetes mellitus type 2, A1c 7.6% Hypothyroidism PLAN: [] Currently stress Cardiolite is pending further recommendations will follow pending those results if stress test is abnormal likely we will proceed with coronary angiography. We will also review 2D echocardiogram results. All questions have been answered. MINNIE SILVA MD Feb 23, 2025 12:29
--- NOTE | 2025-02-23 13:38 | HMCSR ---
APPROVED REPORT Height: 5 ft 6in Weight: 160 lbs TEST INDICATIONS Chest Pain The imaging protocol used to acquire images was Rest Tc-99m/stress Tc-99m 1 day Consent: The procedure was explained and understood by the patient. Informerd consent was witnessed by MARILYN QUICK RN First, low dose rest was performed then high dose stress. RESTING DATA: The resting ekg shows: NSR Rest SPECT myocardial perfusion imaging was performed in supine position minutes following the intravenous injection of 10 mCi of Tc-99 Sestamibi. Time of rest injection: 06:30: Date: 02/23/2025 PHARMACOLOGIC STRESS: Pharmacologic stress test was performed by injecting regadenoson 0.4 mg IV push followed by the intravenous injection of 29 mCi of Tc-99 Sestamibi. Time of stress injection: 08:20: Date: 02/23/2025 Heart Rate at time of stress injection: 79 bpm. Gated Stress SPECT was performed 60 minutes after stress injection. The images were gated to evaluate regional wall motion and calculate left ventricular ejection fraction. STRESS DETAILS Reason for Termination: Infusion complete Stress Symptoms: Dyspnea Max HR Achieved: 110 bpm % of APMHR Achieved: 94 Max Blood Pressure: 160/74 mmHg Stress ECG: NSR Study quality was good. Lung uptake was Normal. Artifact: No artifact IMPRESSION Normal pharmacologic nuclear stress test. Conclusion Normal perfusion. TID 74%. Abnormal TID, recommend CCTA.
[2025-02-23] MEDS: LIDOCAINE 4% ADH..PATCH TP ONE (15:45)
[2025-02-23] MEDS: ERGOCALCIFEROL (VITAMIN D2) 50,000 UNIT CAPSULE PO ONE (15:45)
--- NOTE | 2025-02-23 16:54 | HMCSR ---
APPROVED REPORT EXAM: Two-dimensional and M-mode echocardiogram with Doppler and color Doppler. INDICATION ICD: Chest Pain 2D Dimensions RVDd 3.9 cm LVEF(%) 85.5 (>50%) LVED Vol(simp.) 66.0 mL IVSd 0.9 (0.7-1.1cm) FS(%) 54 % LVES Vol(simp.) 28.0 mL LVDd 3.6 (3.8-5.6cm) LA (2D) 3.2 (1.6-4.0cm) LVEF(%, simp.) 58 % PWd 0.9 (0.7-1.1cm) Ao Root(2D) 2.9 (2.0-3.7cm) LA ESV INDEX (BP) 21.70 mL/m2 LVDs 1.7 (2.5-4.0cm) LVOT diam 2.1 (1.8-2.4cm) IVC diam 2.1 cm Deformation Strain Apical 4 -14.9 % Apical 2 -17.2 % Apical 3 -14.3 % Global Strain -15.5 % M-Mode Dimensions EPSS 0.7 cm LA (MM) 3.7 (1.6-4.0cm) Ao Root(MM) 2.8 (2.0-3.7cm) Aortic Valve AoV Vmax 1.2 m/s Ao Peak GR 5.9 mmHg LVOT Vmax 1.1 m/s AoV VTI 0.3 m Ao Mean GR 4.0 mmHg LVOT VTI 0.20 m FREDRICK (VMAX) 2.93 cm2 FREDRICK (VTI) 2.6 cm2 Mitral Valve MV E Vmax 51.4 cm/s DECEL Time 189 ms MV A Vmax 86.9 cm/s P 1/2 T 46 ms E/A ratio 0.6 MVA (PHT) 4.8 cm2 TDI E/E' Medial 9.3 E/E' Lateral 6.7 Medial E' Peak V 5.55 cm/s Lateral E' Peak V 7.63 cm/s Pulmonary Valve PV Vmax 1.2 m/s PV VTI 0.26 m PV Mean GR 3.4 mmHg PV Peak GR 5.5 mmHg Left Ventricle The left ventricle is normal size. There is normal left ventricular wall thickness. LVEF is 55-60%. The left ventricular diastolic function is normal. Right Ventricle The right ventricle is normal size. The right ventricular systolic function is normal. Atria The left atrium size is normal. The right atrium size is normal. Aortic Valve The aortic valve is normal in structure. No aortic regurgitation is present. There is no aortic valvular stenosis. Mitral Valve The mitral valve is normal in structure. There is no mitral valve regurgitation noted. There is no mitral valve stenosis. Tricuspid Valve The tricuspid valve is normal in structure. There is no tricuspid valve regurgitation noted. Pulmonic Valve The pulmonary valve is normal in structure. There is no pulmonic valvular regurgitation. Great Vessels The aortic root is normal in size. The IVC is normal in size and collapses >50% with inspiration. Pericardium There is no pericardial effusion. Conclusion The left ventricle is normal size. LVEF is 55-60%. The left ventricular diastolic function is normal. The right ventricle is normal size. The right ventricular systolic function is normal. The left atrium size is normal. The right atrium size is normal. No valvular pathology. There is no pericardial effusion.
--- NOTE | 2025-02-23 17:19 | PN ---
[facility] CARDIOLOGY PROGRESS NOTE Date Patient Seen: Feb 23, 2025 Time of Visit: 17:18 Interval History: [No events. ] Physical Examination: GENERAL: [No acute distress.] HEAD: [Normal with no signs of head trauma.] EYES: [PERRLA, EOMI, conjunctiva and sclera normal.] ENT: [Hearing grossly intact, normal oropharynx.] NECK: [Supple without JVD. There is no tenderness, lymphadenopathy, or masses. No thyromegaly. Normal carotid upstrokes without bruits.] LUNGS: [Clear breath sounds bilaterally. There are right basilar rales one third of the way up the chest. No wheezes, or rhonchi.] HEART: [Normal rate and rhythm. Normal S1 and S2 without mumurs, gallop or rub.] VASC: [Peripheral pulses +2 bilaterally.] ABD: [Bowel sounds normal, soft, nontender, no masses, no organomegaly. No audible bruits.] : [Not examined] LYMPH: [No lymphadenopathy noted.] EXT: [No clubbing, cyanosis or edema.] SKIN: [No rashes or lesions noted.] NEURO: [Awake, alert, and oriented x3. No focal sensory or strength deficits noted.] Laboratory: [ ] Hematology Labs: Test 02/23/25 05:16 Range/Units White Blood Count 7.3 4.8-10.8 K/uL Red Blood Count 3.78 L 4.00-5.50 MIL/uL Hemoglobin 12.0 12.0-16.0 g/dL Hematocrit 35.5 L 36-48 % Mean Corpuscular Volume 93.9 79-99 fL Mean Corpuscular Hemoglobin 31.7 27.0-33.0 pg Mean Corpuscular Hemoglobin Concent 33.8 32.0-36.0 g/dL Red Cell Distribution Width 12.7 11.0-15.5 % Platelet Count 267 130-400 K/uL Mean Platelet Volume 10.2 7.5-10.5 fL Immature Granulocyte % (Auto) 0.1 0-1 % Neutrophils (%) (Auto) 51.4 40.0-77.0 % Lymphocytes (%) (Auto) 34.1 21.0-51.0 % Monocytes (%) (Auto) 9.6 3.0-13.0 % Eosinophils (%) (Auto) 4.1 0.0-8.0 % Basophils (%) (Auto) 0.7 0.0-5.0 % Neutrophils # (Auto) 3.8 1.8-7.7 K/uL Lymphocytes # (Auto) 2.5 1.0-4.8 K/uL Monocytes # (Auto) 0.7 0.1-1.0 K/uL Eosinophils # (Auto) 0.30 0.00-0.70 K/uL Basophils # (Auto) 0.05 0.00-0.20 K/uL Absolute Immature Granulocyte (auto 0.01 0-1 K/uL Nucleated Red Blood Cells 0.0 0.0-0.19 % Chemistry Labs: Test 02/23/25 15:20 02/23/25 05:16 02/22/25 13:13 Range/Units Whole Blood Glucose 204 H 70-110 MG/DL Bedside Glucose Comment Notified Nurse Sodium Level 140 136-145 mmol/L Potassium Level 3.5 3.5-5.1 mmol/L Chloride Level 108 101-111 mmol/L Carbon Dioxide Level 25 21-32 mmol/L Blood Urea Nitrogen 10 7-18 mg/dL Creatinine 0.7 0.5-1.0 mg/dL Glomerular Filtration Rate Calc 86 >90 mL/min Random Glucose 119 H 70-105 mg/dL Total Calcium 10.0 8.5-10.1 mg/dL Ionized Calcium 1.33 1.15-1.33 MMOL/L Magnesium Level 1.70 L 1.80-2.40 mg/dL Total Creatine Kinase 38 21-232 U/L Troponin I High Sensitivity 10.0 4-50 ng/L Vitamin D 25-Hydroxy 8.3 30.0-100.0 ng/mL Parathyroid Hormone (Intact) 223.3 15-65 pg/mL Hemoglobin A1c 7.6 H 4.0-6.0 % Estimated Average Glucose (eAG) 171 H 70-126 mg/dL Triglycerides Level 126 30-200 mg/dL Cholesterol Level 195 <200 mg/dL LDL Cholesterol 109 H 0-99 mg/dL HDL Cholesterol 56 35-85 mg/dL Thyroid Stimulating Hormone (TSH) 1.92 # 0.36-3.74 uIU/mL Coagulation Labs: Test 02/22/25 13:13 Range/Units Prothrombin Time 10.5 9.6-11.6 SEC Prothromb Time International Ratio 0.99 0.85-1.15 Activated Partial Thromboplast Time 29.2 26.3-35.5 SEC Diagnostics / Radiology: [Copy/Paste Echos/Imaging Report here] Impression and Plan: [ Chest pain Hypertension Hyperlipidemia, LDL 109 Diabetes mellitus type 2, A1c 7.6% Hypothyroidism Chest pain Cardiac enzymes have been negative x2 EKG demonstrated normal sinus rhythm with a heart rate of 97bpm with a right bundle branch block. -Lexiscan normal perfusion, Abnormal TID, possible artifact, recommend outpatient CCTA Echo normal Uncontrolled DM -reports of hyperglycemia before arrival during symptoms -recommend Endocrinology consult I will sign off at this time. She may follow up with Dr Bland in one week] CARMINE JOYCE MD Feb 23, 2025 17:19
[2025-02-24 04:08] VITALS: BP 137/79; PULSE 76; RESP 18; TEMP 98
[2025-02-24 04:18] LABS: IMMATURE GRANULOCYTE ABSOLUTE 0.02 K/uL (0-1); NUCLEATED RED BLOOD CELLS 0.0 % (0.0-0.19); PLATELET COUNT (AUTO) 265 K/uL (130-400); RED BLOOD CELL COUNT(AUTO) 3.67 MIL/uL (4.00-5.50); RED CELL DISTRIBUTION WIDTH 12.6 % (11.0-15.5); WHITE BLOOD COUNT (AUTO) 6.8 K/uL (4.8-10.8)
[2025-02-24 04:25] LABS: CREATININE 0.9 mg/dL (0.5-1.0); GLOMERULAR FILTR. RATE CALC 64.0 mL/min (>90); GLUCOSE,RANDOM 156.0 mg/dL (70-105); SODIUM SERUM 138.0 mmol/L (136-145); UREA NITROGEN, BLOOD 12.0 mg/dL (7-18)
[2025-02-24] MEDS: PoTASSium chloRIDE 20MEQ ER 20 MEQ ERTAB PO PRN (04:48)
[2025-02-24 08:08] VITALS: BP 124/62; PULSE 69; RESP 16; TEMP 98.1
[2025-02-24] MEDS ORDERED: MAGNESIUM 2GM PREMIX 50ML 50 ML IV PRN (11:00)
[2025-02-24 12:34] VITALS: BP 136/64; PULSE 74; RESP 16; TEMP 97.8
--- NOTE | 2025-02-24 14:52 | DS ---
Discharge Summary Hospital Course Summary: The patient is an 84-year-old female with a past medical history of type 2 diabetes mellitus, hypertension, hyperlipidemia, and hypothyroidism who presented to the Emergency Department with acute chest pain. The pain began earlier in the morning, lasted approximately 30 minutes, was rated 6/10 in severity, and radiated to the right shoulder. She reported significant improvement after receiving nitroglycerin from EMS and was largely pain-free upon arrival. She denied fever, chills, dyspnea, long travel, pleuritic symptoms, and leg swelling. She also reported limited ambulation due to dizziness, a possible syncopal episode in September, and prior hypoglycemic events. She uses a walker at baseline. Initial vital signs showed she was afebrile, mildly tachycardic at 100 bpm, with a blood pressure of 101/43 and oxygen saturation of 98% on room air. Laboratory workup revealed normal CBC, sodium 133, potassium 3.9, creatinine 1.0, glucose 206, calcium 10.4, CK 26, and an initial high-sensitivity troponin of 9. She was admitted under observation to rule out acute coronary syndrome, and Cardiology was consulted. During the hospital course, serial troponins remained within normal limits and the patient remained hemodynamically stable. On 02/23/2025, she denied chest pain but continued to have neck discomfort. A Lidocaine 4% patch was applied with relief. Magnesium was 1.7 and replaced per protocol. Her HbA1c was 7.6, and she was managed with an insulin sliding scale. CT cervical spine showed moderate to severe osteoarthritis; chest X-ray, head CT, and carotid ultrasound were unremarkable. The patient completed a Lexiscan nuclear stress test and a 2D echocardiogram. The echocardiogram showed normal left ventricular function with no significant structural abnormalities. The Lexiscan demonstrated normal perfusion, without evidence of reversible ischemia. An abnormal transient ischemic dilation (TID) ratio was noted, which Cardiology felt was most likely an artifact given the otherwise normal perfusion pattern. Due to this finding and her cardiovascular risk factors, Cardiology recommended outpatient coronary CT angiography (CCTA) for further evaluation. Endocrinology was consulted regarding diabetes management and recommended initiating Lantus 25 units nightly and metformin 500 mg twice daily, with follow-up in their clinic within one week. They also advised outpatient evaluation for primary hyperparathyroidism. The patient remained clinically stable with no recurrence of chest pain and is now medically optimized for discharge. She will follow up with Cardiology for review of imaging studies and completion of the outpatient CCTA. She will also follow up with her primary care physician and Endocrinology within one week for diabetes management and further assessment of hyperparathyroidism. She is discharged home in stable condition with instructions on medications, activity as tolerated, walker use, and return precautions. [employer] Architect(s): CONSULTATION REPORT Name: EVELYN MALONEY Acct: [id number] MR: [id number] : 1940 Admit Date: 02/22/[address] [facility] [address] [place] [address] [facility] CONSULTATION REPORT Cardiology consultation note dictated for Alyssa Bland MD Date Patient Seen: Feb 22, 2025 Time of Visit: 16:02 Requesting Physician: Morgan Fang MD Reason for Consultation: Chest pain History of Present Illness: This is an 84-year-old female with a past medical history of hypertension, hyperlipidemia, diabetes mellitus type 2, hypothyroidism, anxiety, and depr ession who presented to the ED with complaints of chest pain. Cardiology has been consulted for chest pain. The patient is a poor historian but was able to endorse complaints of right upper chest discomfort with radiation to the right arm that started this morning. The patient was unable to describe the quality of the chest discomfort but she admit it was a 6/10 intensity. There were no accompanying symptoms are aggravating factors. Chest discomfort was alleviated by sublingual nitroglycerin. Cardiac enzymes have been negative x2. EKG demonstrated normal sinus rhythm with a heart rate of 97bpm with a right bundle branch block. The patient also admitted to having almost daily midsternal chest discomfort for approximately 1 year in duration that can occur at rest. She denies dyspnea or fatigue on exertion. The patient was seen by Dr. Jose Zhou in May of 2021 as a consultation for evaluation of chest pain and due to her risk factors, she was recommended to undergo Lexiscan stress test and an echocardiogram but the patient failed to follow-up. Past Medical History: As per HPI and summarized below Past Surgical History: Hysterectomy Cholecystectomy Family History: The patient denies family history of heart disease. Social History: The patient lives with her daughter. Habits: Never smoker. Denies alcohol consumption. Denies illicit drug use Home Meds: Citalopram 10 mg daily Gabapentin 300 mg b.i.d. Alendronate 70 mg p.o. weekly Glipizide 10 mg b.i.d. Levothyroxine 50 mcg daily Lisinopril 2.5 mg daily Metformin 500 mg t.i.d. Simvastatin 40 mg q.h.s. Timolol 0.5%, 1 drop Op b.i.d. Latanoprost 0.005%, 1 drop op daily Current Meds: Current Medications Medications Dose Ordered Sig/Hyacinth Start Time Stop Time Status Last Admin Insulin Human Regular INSULIN SLIDING SCAL... ACHS 02/22/25 16:30 03/24/25 16:29 Dextrose 50 ml AD PRN 02/22/25 14:30 03/24/25 14:29 Glucagon 1 mg AD PRN 02/22/25 14:30 03/24/25 14:29 Aspirin 81 mg DAILY 02/23/25 09:00 03/25/25 08:59 Acetaminophen 650 mg Q6H PRN 02/22/25 14:30 03/24/25 14:29 Ondansetron HCl 4 mg Q6H PRN 02/22/25 14:30 03/24/25 14:29 Sodium Chloride 1,000 ml @ 50 mls/hr Q20H 02/22/25 14:30 03/24/25 14:29 02/22/25 15:02 Pantoprazole Sodium 40 mg Q24H 02/22/25 14:30 03/24/25 14:29 02/22/25 15:02 Enoxaparin Sodium 40 mg DAILY 02/23/25 09:00 03/25/25 08:59 Hydralazine HCl 5 mg Q6H PRN 02/22/25 14:30 03/24/25 14:29 Nitroglycerin 0.4 mg AD PRN 02/22/25 14:30 03/24/25 14:29 Gabapentin 300 mg BID 02/22/25 21:00 03/24/25 20:59 Levothyroxine Sodium 50 mcg DAILY 02/23/25 09:00 03/25/25 08:59 Lisinopril 2.5 mg Q24H 02/22/25 15:30 03/24/25 15:29 02/22/25 15:56 Citalopram Hydrobromide 10 mg DAILY 02/23/25 09:00 03/25/25 08:59 Simvastatin 40 mg HS 02/22/25 21:00 03/24/25 20:59 Review of Systems: CONST: No fever, fatigue, or weight changes. EYES: No recent vision problems. ENT: No congestion, ear pain, or sore throat. C/V: No chest pain, palpitations, or edema. RESP: No cough, congestion, wheezing or shortness of breath. GI: No abdominal pain, nausea, vomiting, constipation, or diarrhea. : No incontinence or dysuria. SKIN: No rash. NEURO: No headache, focal numbness or weakness, dizziness, or seizures. PSYCH: No depression or anxiety. HEME: No abnormal bruising or bleeding. LYMPH: No swollen glands. Physical Examination: GENERAL: No acute distress. HEAD: Normal with no signs of head trauma. EYES: Conjunctiva and sclera normal. ENT: Hearing grossly intact, normal oropharynx. NECK: Supple without JVD.Normal carotid upstrokes without bruits. LUNGS: Clear breath sounds bilaterally. No wheezes, or rhonchi. HEART: Normal rate and rhythm. Normal S1 and S2 without murmurs, gallop or rub. VASC: Peripheral pulses +2 bilaterally. ABD: Bowel sounds normal, soft, nontender, no masses, no organomegaly. No audible bruits. : Not examined LYMPH: No lymphadenopathy noted. EXT: No clubbing, cyanosis or edema. SKIN: No rashes or lesions noted. NEURO: Awake, alert, and oriented x3. Poor memory. Vital Signs (last 8hr) Date Time Temp Pulse Resp B/P (MAP) Pulse Ox O2 Delivery O2 Flow Rate FiO2 02/22/25 15:52 98.2 80 12 147/75 98 Room Air* 0 02/22/25 14:08 98.2 85 12 146/71 98 Room Air* 0 02/22/25 13:26 98.2 86 12 141/64 97 Room Air* 0 02/22/25 12:58 98.2 100 20 101/43 98 Room Air Laboratory: Hematology Labs: Test 02/22/25 13:13 Range/Units White Blood Count 6.7 4.8-10.8 K/uL Red Blood Count 4.09 4.00-5.50 MIL/uL Hemoglobin 12.8 12.0-16.0 g/dL Hematocrit 38.9 36-48 % Mean Corpuscular Volume 95.1 79-99 fL Mean Corpuscular Hemoglobin 31.3 27.0-33.0 pg Mean Corpuscular Hemoglobin Concent 32.9 32.0-36.0 g/dL Red Cell Distribution Width 12.8 11.0-15.5 % Platelet Count 282 130-400 K/uL Mean Platelet Volume 10.0 7.5-10.5 fL Immature Granulocyte % (Auto) 0.2 0-1 % Neutrophils (%) (Auto) 59.2 40.0-77.0 % Lymphocytes (%) (Auto) 28.7 21.0-51.0 % Monocytes (%) (Auto) 7.8 3.0-13.0 % Eosinophils (%) (Auto) 3.3 0.0-8.0 % Basophils (%) (Auto) 0.8 0.0-5.0 % Neutrophils # (Auto) 4.0 1.8-7.7 K/uL Lymphocytes # (Auto) 1.9 1.0-4.8 K/uL Monocytes # (Auto) 0.5 0.1-1.0 K/uL Eosinophils # (Auto) 0.22 0.00-0.70 K/uL Basophils # (Auto) 0.05 0.00-0.20 K/uL Absolute Immature Granulocyte (auto 0.01 0-1 K/uL Nucleated Red Blood Cells 0.0 0.0-0.19 % Chemistry Labs: Test 02/22/25 13:17 02/22/25 13:13 Range/Units Troponin I High Sensitivity 12 4-50 ng/L Sodium Level 133 L 136-145 mmol/L Potassium Level 3.9 3.5-5.1 mmol/L Chloride Level 99 L 101-111 mmol/L Carbon Dioxide Level 25 21-32 mmol/L Blood Urea Nitrogen 12 7-18 mg/dL Creatinine 1.0 0.5-1.0 mg/dL Glomerular Filtration Rate Calc 56 >90 mL/min Random Glucose 206 H 70-105 mg/dL Hemoglobin A1c 7.6 H 4.0-6.0 % Estimated Average Glucose (eAG) 171 H 70-126 mg/dL Total Calcium 10.4 H 8.5-10.1 mg/dL Total Creatine Kinase 26 # 21-232 U/L Triglycerides Level 126 30-200 mg/dL Cholesterol Level 195 <200 mg/dL LDL Cholesterol 109 H 0-99 mg/dL HDL Cholesterol 56 35-85 mg/dL Thyroid Stimulating Hormone (TSH) 1.92 # 0.36-3.74 uIU/mL Coagulation Labs: Test 02/22/25 13:13 Range/Units Prothrombin Time 10.5 9.6-11.6 SEC Prothromb Time International Ratio 0.99 0.85-1.15 Activated Partial Thromboplast Time 29.2 26.3-35.5 SEC Diagnostics / Radiology: Impression and Plan: Chest pain Hypertension Hyperlipidemia, LDL 109 Diabetes mellitus type 2, A1c 7.6% Hypothyroidism Chest pain Cardiac enzymes have been negative x2 EKG demonstrated normal sinus rhythm with a heart rate of 97bpm with a right bundle branch block. -Lexiscan stress test in AM -Obtain 2D Echocardiogram to assess LV function and valvular pathology ROBBIE MARSH [facility] Feb 22, 2025 16:14 Electronically Signed by: ROBBIE MARSH [facility]04/24/24 1614 Electronically Co-Signed by: Procedure(s): [address] [address] IMAGING REPORT Signed PATIENT: EVELYN MALONEY MR#: [id number] : 1940 SEX: F AGE: 84 LOCATION: [facility] ORDER 1305 STATUS: [facility] REPORT#: [id number] SERVICE 1300 REASON: cp ORDERING PHYSICIAN: KELBY GOMEZ MD PROCEDURE: CXR1VW - CHEST 1VW EXAM: CR Chest, 1 View. CLINICAL HISTORY: cp COMPARISON: None provided. FINDINGS: LUNGS: The lungs show no infiltrate or other acute finding. PLEURAL SPACES: No evidence of pleural effusion or pneumothorax. MEDIASTINUM: Cardiac size and mediastinal contours within normal limits. BONES: No aggressive appearing osseous lesion seen. IMPRESSION: No acute cardiopulmonary pathology is evident. /[place] DICTATED BY: MIRYAM TOMAS Jr., MD DATE: 02/22/251508 ELECTRONICALLY SIGNED BY: MIRYAM TOMAS Jr., MD DATE: 02/22/25 [address] [place] [id number] [address] IMAGING REPORT Signed PATIENT: EVELYN MALONEY MR#: [id number] : 1940 SEX: F AGE: 84 LOCATION: [facility] ORDER STATUS: [facility] REPORT#: [id number] SERVICE 1411 REASON: hx of fall w/ possible syncope in September,, neck pain since then ORDERING PHYSICIAN: BRE FANG MD PROCEDURE: C SPIN WO - CT CERVICAL SPINE W/O CONTRAST EXAM: CT Cervical Spine Without IV contrast. CLINICAL HISTORY: hx of fall w/ possible syncope in September,, neck pain since then TECHNIQUE: Axial computed tomography images of the cervical spine without intravenous contrast. Sagittal and coronal reformatted images were generated. COMPARISON: None provided. FINDINGS: ALIGNMENT: There is straightening of the cervical spine, which may reflect paraspinal muscle spasm. DEGENERATIVE CHANGES: There is cervical spondylosis evident by anterior marginal osteophytes, uncovertebral joint hypertrophy, and multiple-level facet joint osteoarthritis. There is moderate to severe multiple-level degenerative disc disease, more pronounced at the C4-C5 and C5-C6 levels. SOFT TISSUES: The prevertebral soft tissues are within normal limits. BONES: No acute fracture or aggressive appearing osseous lesion. IMPRESSION: 1. No acute fracture seen /[place] DICTATED BY: STEVE GERARDO MD DATE: 02/22/251655 ELECTRONICALLY SIGNED BY: STEVE GERARDO MD DATE: 02/22/251655 [place] [id number] [address] IMAGING REPORT Signed PATIENT: EVELYN MALONEY MR#: [id number] : 1940 SEX: F AGE: 84 LOCATION: [facility] ORDER 1420 STATUS: ADM IN REPORT#: [id number] SERVICE 1419 REASON: hx of fall w/ possible syncope in September,, neck pain since then ORDERING PHYSICIAN: BRE FANG MD PROCEDURE: HEAD WO - CT HEAD/BRAIN W/O CONTRAST EXAM: CT Head Without IV contrast. CLINICAL HISTORY: hx of fall w/ possible syncope in September,, neck pain since then TECHNIQUE: Axial computed tomography images of the head/brain without intravenous contrast. COMPARISON: None provided. FINDINGS: BRAIN: No evidence of acute hemorrhage. No mass lesion. No CT evidence for acute territorial infarct. No midline shift or extra-axial collections. VENTRICLES: No hydrocephalus. ORBITS: The orbits are unremarkable. SINUSES AND MASTOIDS: The paranasal sinuses and mastoid air cells are clear. BONES: No fracture. SOFT TISSUES: Unremarkable. IMPRESSION: No acute intracranial abnormality. /[place] DICTATED BY: MIRYAM TOMAS Jr., MD DATE: 02/22/251556 ELECTRONICALLY SIGNED BY: MIRYAM TOMAS Jr., MD DATE: 02/22/251556 [place] [address] IMAGING REPORT Signed PATIENT: EVELYN MALONEY MR#: [id number] : 1940 SEX: F AGE: 84 LOCATION: [facility] ORDER 1530 STATUS: ADM IN REPORT#: [id number] SERVICE 1528 REASON: hx of intermttent dizziness with ambulation, r/o carotid artery stenosis ORDERING PHYSICIAN: BRE FANG MD PROCEDURE: CAROTID - US CAROTID DUPLEX EXAMINATION: DUPLEX ULTRASOUND EXAMINATION OF THE BILATERAL CAROTID AND VERTEBRAL ARTERIES. CLINICAL HISTORY: History of intermittent dizziness with ambulation. Rule out carotid artery stenosis. COMPARISON: None provided. TECHNIQUE: Real-time ultrasound scan of the bilateral carotid and vertebral arteries, 2-D grayscale, with color Doppler flow and spectral waveform analysis. FINDINGS: Color and spectral Doppler interrogation of the carotid vessels on the right demonstrate peak systolic velocities as follows: CCA (Proximal and distal): 109 and 59 cm/s respectively. ECA: 88 cm/s. ICA (Proximal, mid, and distal): 53, 74, and 43 cm/s respectively. Vertebral artery demonstrates antegrade flow: 41 cm/s. Right ICA/CCA ratio: 1.2 Peak systolic velocities on the left are as follows: CCA (Proximal and distal): 150 and 79 cm/s respectively. Bulb: 50 cm/s. ECA: 79 cm/s. ICA (Proximal, mid, and distal): 48, 63, and 82 cm/s respectively. Vertebral artery demonstrates antegrade flow: 28 cm/s. Left ICA/CCA ratio: 1.0 Both the common carotid arteries and their branches reveal mild intimal thickening. IMPRESSION: Mild intimal thickening in the bilateral carotid arteries and their branches. There is no significant stenosis or flow limiting lesions. /[place] DICTATED BY: MIRYAM TOMAS Jr., MD DATE: 02/23/25621 ELECTRONICALLY SIGNED BY: MIRYAM TOMAS Jr., MD DATE: 02/23/25621 [place] [address] IMAGING REPORT Signed PATIENT: EVELYN MALONEY MR#: [id number] : 1940 SEX: F AGE: 84 LOCATION: [facility] ORDER 153 STATUS: ADM IN REPORT#: [id number] SERVICE 1528 REASON: hx of intermttent dizziness with ambulation, r/o carotid artery stenosis ORDERING PHYSICIAN: BRE FANG MD PROCEDURE: CAROTID - US CAROTID DUPLEX EXAMINATION: DUPLEX ULTRASOUND EXAMINATION OF THE BILATERAL CAROTID AND VERTEBRAL ARTERIES. CLINICAL HISTORY: History of intermittent dizziness with ambulation. Rule out carotid artery stenosis. COMPARISON: None provided. TECHNIQUE: Real-time ultrasound scan of the bilateral carotid and vertebral arteries, 2-D grayscale, with color Doppler flow and spectral waveform analysis. FINDINGS: Color and spectral Doppler interrogation of the carotid vessels on the right demonstrate peak systolic velocities as follows: CCA (Proximal and distal): 109 and 59 cm/s respectively. ECA: 88 cm/s. ICA (Proximal, mid, and distal): 53, 74, and 43 cm/s respectively. Vertebral artery demonstrates antegrade flow: 41 cm/s. Right ICA/CCA ratio: 1.2 Peak systolic velocities on the left are as follows: CCA (Proximal and distal): 150 and 79 cm/s respectively. Bulb: 50 cm/s. ECA: 79 cm/s. ICA (Proximal, mid, and distal): 48, 63, and 82 cm/s respectively. Vertebral artery demonstrates antegrade flow: 28 cm/s. Left ICA/CCA ratio: 1.0 Both the common carotid arteries and their branches reveal mild intimal thickening. IMPRESSION: Mild intimal thickening in the bilateral carotid arteries and their branches. There is no significant stenosis or flow limiting lesions. /[place] DICTATED BY: MIRYAM TOMAS Jr., MD DATE: 02/23/25621 ELECTRONICALLY SIGNED BY: MIRYAM TOMAS Jr., MD DATE: 02/23/25621 [place] [address] IMAGING REPORT Signed PATIENT: EVELYN MALONEY MR#: [id number] : 1940 SEX: F AGE: 84 LOCATION: [facility] ORDER 11 STATUS: [facility] REPORT#: [id number] SERVICE 06 REASON: chest pain ORDERING PHYSICIAN: ROBBIE MARSH PROCEDURE: CARD TIMI - NM LEXISCAN CARDIOLITE APPROVED REPORT Height: 5 ft 6in Weight: 160 lbs TEST INDICATIONS Chest Pain The imaging protocol used to acquire images was Rest Tc-99m/stress Tc-99m 1 day Consent: The procedure was explained and understood by the patient. Informerd consent was witnessed by MARILYN QUICK RN First, low dose rest was performed then high dose stress. RESTING DATA: The resting ekg shows: NSR Rest SPECT myocardial perfusion imaging was performed in supine position minutes following the intravenous injection of 10 mCi of Tc-99 Sestamibi. Time of rest injection: 06:30: Date: 02/23/2025 PHARMACOLOGIC STRESS: Pharmacologic stress test was performed by injecting regadenoson 0.4 mg IV push followed by the intravenous injection of 29 mCi of Tc-99 Sestamibi. Time of stress injection: 08:20: Date: 02/23/2025 Heart Rate at time of stress injection: 79 bpm. Gated Stress SPECT was performed 60 minutes after stress injection. The images were gated to evaluate regional wall motion and calculate left ventricular ejection fraction. STRESS DETAILS Reason for Termination: Infusion complete Stress Symptoms: Dyspnea Max HR Achieved: 110 bpm % of APMHR Achieved: 94 Max Blood Pressure: 160/74 mmHg Stress ECG: NSR Study quality was good. Lung uptake was Normal. Artifact: No artifact IMPRESSION Normal pharmacologic nuclear stress test. Conclusion Normal perfusion. TID 74%. Abnormal TID, recommend CCTA. DICTATED BY: CARMINE JOYCE MD DATE: 02/23/25 0730 ELECTRONICALLY SIGNED BY: CARMINE JOYCE MD DATE: 02/23/[address] [address] IMAGING REPORT Signed PATIENT: EVELYN MALONEY MR#: [id number] : 1940 SEX: F AGE: 84 LOCATION: [facility] ORDER 1612 STATUS: ADM IN REPORT#: [id number] SERVICE 1609 REASON: chest pain ORDERING PHYSICIAN: ROBBIE MARSH PROCEDURE: ECHO CMP - ECHO 2-D COMPLETE APPROVED REPORT EXAM: Two-dimensional and M-mode echocardiogram with Doppler and color Doppler. INDICATION ICD: Chest Pain 2D Dimensions RVDd 3.9 cm LVEF(%) 85.5 (>50%) LVED Vol(simp.) 66.0 mL IVSd 0.9 (0.7-1.1cm) FS(%) 54 % LVES Vol(simp.) 28.0 mL LVDd 3.6 (3.8-5.6cm) LA (2D) 3.2 (1.6-4.0cm) LVEF(%, simp.) 58 % PWd 0.9 (0.7-1.1cm) Ao Root(2D) 2.9 (2.0-3.7cm) LA ESV INDEX (BP) 21.70 mL/m2 LVDs 1.7 (2.5-4.0cm) LVOT diam 2.1 (1.8-2.4cm) IVC diam 2.1 cm Deformation Strain Apical 4 -14.9 % Apical 2 -17.2 % Apical 3 -14.3 % Global Strain -15.5 % M-Mode Dimensions EPSS 0.7 cm LA (MM) 3.7 (1.6-4.0cm) Ao Root(MM) 2.8 (2.0-3.7cm) Aortic Valve AoV Vmax 1.2 m/s Ao Peak GR 5.9 mmHg LVOT Vmax 1.1 m/s AoV VTI 0.3 m Ao Mean GR 4.0 mmHg LVOT VTI 0.20 m FREDRICK (VMAX) 2.93 cm2 FREDRICK (VTI) 2.6 cm2 Mitral Valve MV E Vmax 51.4 cm/s DECEL Time 189 ms MV A Vmax 86.9 cm/s P 1/2 T 46 ms E/A ratio 0.6 MVA (PHT) 4.8 cm2 TDI E/E' Medial 9.3 E/E' Lateral 6.7 Medial E' Peak V 5.55 cm/s Lateral E' Peak V 7.63 cm/s Pulmonary Valve PV Vmax 1.2 m/s PV VTI 0.26 m PV Mean GR 3.4 mmHg PV Peak GR 5.5 mmHg Left Ventricle The left ventricle is normal size. There is normal left ventricular wall thickness. LVEF is 55-60%. The left ventricular diastolic function is normal. Right Ventricle The right ventricle is normal size. The right ventricular systolic function is normal. Atria The left atrium size is normal. The right atrium size is normal. Aortic Valve The aortic valve is normal in structure. No aortic regurgitation is present. There is no aortic valvular stenosis. Mitral Valve The mitral valve is normal in structure. There is no mitral valve regurgitation noted. There is no mitral valve stenosis. Tricuspid Valve The tricuspid valve is normal in structure. There is no tricuspid valve r egurgitation noted. Pulmonic Valve The pulmonary valve is normal in structure. There is no pulmonic valvular regurgitation. Great Vessels The aortic root is normal in size. The IVC is normal in size and collapses >50% with inspiration. Pericardium There is no pericardial effusion. Conclusion The left ventricle is normal size. LVEF is 55-60%. The left ventricular diastolic function is normal. The right ventricle is normal size. The right ventricular systolic function is normal. The left atrium size is normal. The right atrium size is normal. No valvular pathology. There is no pericardial effusion. DICTATED BY: CARMINE JOYCE MD DATE: 02/23/25 0933 ELECTRONICALLY SIGNED BY: CARMINE JOYCE MD DATE: 02/23/25 5013 Assessment/Plan: Discharge Diagnosis: Chest pain with atypical features associated with neck and shoulder pain ,POA - musculoskeletal origin secondary to osteoarthritis Uncontrolled Type 2 diabetes mellitus, POA Hypertension, POA Hyperlipidemia, POA Suspected syncope in September,, POA EKG with right bundle branch block, POA Untreated sleep apnea, POA Hypothyroidism, POA Hypercalcemia, mild, POA Severe Vitamin D deficiency , POA Primary hyperparathyroidism , POA Discharge Instructions: DATE OF ADMISSION: 02.22.2025 DATE OF DISCHARGE: 02.24.2025 DISPOSITION: home CONDITION: Medically stable CONSULTANTS: Dr. Baldo Shah DO - Cardiology Dr. Xander Gómez- Endocrinology Follow-Ups Follow up with Cardiology in 12 weeks to complete the recommended outpatient coronary CT angiography (CCTA), which was advised due to the abnormal TID value likely representing artifact. Follow up with Endocrinology in one week for diabetes management and evaluation of primary hyperparathyroidism. Primary care provider within one week to review her hospital course, and coordinate ongoing care. Specific Instructions The patient should begin Lantus 25 units nightly and metformin 500 mg twice daily as recommended by Endocrinology. Monitor blood sugars before meals and at bedtime Activity is permitted as tolerated, and she should continue using her walker for safety She may continue using the Lidocaine 4% patch for neck pain and take acetaminophen as needed. She is advised to seek immediate medical attention if she develops recurrent chest pain, shortness of breath, palpitations, fainting, uncontrolled blood sugars, or any new symptoms. PROCEDURES: Lexiscan IMAGING: report attached to summary MICROBIOLOGY: report attached to summary HOME MEDICATIONS: see med rec NEW MEDICATIONS: See medication reconciliation EMERGENCY INSTRUCTIONS: The patient was instructed to present to the nearest Emergency department or call 911 once their symptoms will return or worsen. Home Medications: Reported Medications Citalopram Hydrobromide (Citalopram HBr) 10 Mg Tablet, 10 MG PO DAILY, TAB 02/22/25 Gabapentin (Gabapentin) 100 Mg Capsule, 300 MG PO BID, CAP 02/22/25 Alendronate Sodium (Alendronate Sodium) 70 Mg Tablet, 70 MG PO WEEKLY, TAB 11/01/18 Simvastatin (ZOCOR) 40 Mg Tablet, 40 MG PO HS, TAB 11/01/18 Dorzolamide/Timolol/Pf (Timolol 0.5%-Dorzolamide 2%) 10 Ml Drops, 1 DROP OP BID, DROP 11/01/18 Levothyroxine Sodium (Levothyroxine Sodium) 50 Mcg Tablet, 50 MCG PO DAILY, TAB 11/01/18 Glipizide (Glipizide) 10 Mg Tablet, 10 MG PO BID, TAB 11/01/18 Metformin HCl (Metformin HCl) 500 Mg Tablet, 500 MG PO TID, TAB 11/01/18 Latanoprost/Pf (Latanoprost 0.005% Eye Drop) 7.5 Ml Drops, 1 DROP OP DAILY, DROP 11/01/18 Lisinopril (Lisinopril) 2.5 Mg Tablet, 2.5 MG PO DAILY, TAB 11/01/18 Discontinued Scripts Oseltamivir Phosphate (Oseltamivir Phosphate) 75 Mg Capsule, 75 MG PO BID, #6 CAP 0 Refills Prov:SONAL MARTINEZ [employer] 04/21/23 Cephalexin (Cephalexin) 500 Mg Capsule, 500 MG PO BID, #10 CAP 0 Refills Prov:SONAL MARTINEZ ROBOT OPERATOR 04/21/23 Time spent arranging discharge: 1-30 minutes ATTESTATION BY PHYSICIAN I have seen and examined the patient. I reviewed the documentation, medical decision making, and treatment plan as noted by the resident provider above. I agree with the findings and plan of care. Sukhwinder Corrales IV, MD, [place] MD Feb 24, 2025 14:52 GARRICK YANES MD Feb 24, 2025 15:42
[2025-02-24] MEDS ORDERED: METF-444 PO (15:28)
[2025-02-24] MEDS ORDERED: INSU100I26 SQ (15:28)
[2025-02-24] MEDS ORDERED: ERGO500093 PO (15:30)
[2025-02-24 16:12] VITALS: BP 117/64; PULSE 78; RESP 16; TEMP 97.9
--- NOTE | 2025-02-24 17:20 | NUR ---
PT'S DISCHARGE INSTRUCTIONS AND FOLLOW UP APPOINTMENTS GIVEN AND EXPLAINED TO PATIENT AND DAUGHTER. BOTH VERBALIZED UNDERSTANDING.
== END 2025-02-24 18:00 | disposition home or self-care (01) ==
LOC: EDH 12:53 → EDHIP 14:17 → 2AH 21:08
PROVIDERS: ADMIT Internal Medicine; ATTEND Internal Medicine
DX: R07.89 Other chest pain (principal); I10 Essential (primary) hypertension; E78.00 Pure hypercholesterolemia, unspecified; E03.9 Hypothyroidism, unspecified; E11.649 Type 2 diabetes mellitus with hypoglycemia without coma; E11.65 Type 2 diabetes mellitus with hyperglycemia; E11.40 Type 2 diabetes mellitus with diabetic neuropathy, unspecified; F41.9 Anxiety disorder, unspecified; F32.A Depression, unspecified; R42 Dizziness and giddiness; G47.30 Sleep apnea, unspecified; M19.90 Unspecified osteoarthritis, unspecified site; R55 Syncope and collapse; Z79.82 Long term (current) use of aspirin; Z79.899 Other long term (current) drug therapy; Z90.710 Acquired absence of both cervix and uterus; Z98.890 Other specified postprocedural states
CPT/HCPCS: 96361; 99285; 83036; 84443; 82550 ×4; 84484 ×5; 80061; 80048 ×3; 85025 ×3; 85610; 85730; 82948 ×9; 81003; 36415 ×3; 71045; 70450; 72125; 93880; 93005; 96372 ×2; 96365; 83735 ×2; 82330; 82306; 83970; 93017; 78452; 93306; 93356; 96366; G0378 ×52; J7030; J1815 ×4; J3475 ×2; J1650 ×2; J2785; A9500 ×2